=== PATIENT | male | born 1940 | race Two or more races ===

== ENCOUNTER → 2024-09-22 | Outpatient (CLI) | payer MEDICARE, BC, SELFPAY ==
--- NOTE | 2024-09-22 08:00 | EKG_ITS ---
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
--- NOTE | 2024-09-22 08:00 | XR_ITS ---
Examination: PA lateral chest 2 views TECHNIQUE: Upright PA lateral chest 2 views Exam date and time: September 22, 2024 0914 hours Comparison May 18, 2024 INDICATIONS: Preop FINDINGS: Mild chronic heart failure pattern Prominent vascular congestion Cardiac contour obscured by bilateral large pleural effusions Cardiac leads satisfactory position Right internal jugular dialysis catheter tip right atrium IMPRESSION: Chronic heart failure pattern with large bilateral pleural effusions
[2024-09-22 08:36] VITALS: BMI 22.5
[2024-09-22 10:25] LABS: INR 1.3 (0.9-1.3); Partial Thromboplastin Time 25.9 Seconds (22.0-36.0); Prothrombin Time 13.5 Seconds (9.0-12.2)
[2024-09-22 10:26] LABS: Basophils % (Auto) 0 % (0-2.5); Eosinophils % (Auto) 0 % (0-10); Hematocrit 40.3 % (41.0-53.0); Hemoglobin 13.3 g/dL (13.5-16.0); Immature Granulocytes % (Auto) 0 % (0-0); Immature Granulocytes Auto 0.03 Thou/mm3 (0.00-0.00); Lymphocytes # (Auto) 0.9 Thou/mm3 (1.0-4.8); Lymphocytes % (Auto) 13 % (10-50); Mean Corpuscular Hemoglobin 30.5 pg (25.0-35.0); Mean Corpuscular Volume 92 fL (80-100); Monocytes # (Auto) 0.6 Thou/mm3 (0.0-0.8); Monocytes % (Auto) 9 % (0-12); Neutrophils # (Auto) 5.3 Thou/mm3 (1.8-7.7); Neutrophils % (Auto) 77 % (37-80); Nucleated Red Blood Cell % 0 /100 WBC (0); Platelet Count 144 Thou/mm3 (140-440); Red Blood Count 4.36 Miln/mm3 (4.50-5.90); White Blood Count 6.9 Thou/mm3 (3.8-10.6)
[2024-09-22 11:14] LABS: Alanine Aminotransferase 48 U/L (10-49); Albumin, Serum 4.2 gm/dL (3.4-4.8); Albumin/Globulin Ratio 1.8 (1.2-2.2); Alkaline Phosphatase 94 U/L (46-116); Anion Gap 11 (7-16); Aspartate Amino Transferase 41 U/L (0-34); BUN/Creatinine Ratio 16 Ratio (12-20); Bilirubin,Total 0.8 mg/dL (0.3-1.2); Blood Urea Nitrogen 82 mg/dL (9-23); Calcium 9.3 mg/dL (8.3-10.6); Calcium (Corrected) 9.3 mg/dL (8.5-10.1); Carbon Dioxide 25.1 mMol/L (20.0-31.0); Chloride 91 mMol/L (98-107); Creatinine (Component) 5.1 mg/dL (0.6-1.3); Estimated Creatinine Clearance 10.3 mL/min (>60); Globulin 2.4 gm/dL (2.3-3.5); Glucose 225 mg/dL (74-106); Osmolality,Calculated 286 (275-295); Sodium 127 mMol/L (136-145); Total Protein 6.6 gm/dL (5.7-8.2); eGFR 11 See Note
[2024-09-22 11:20] LABS: Potassium 6.8 mMol/L (3.4-5.1)
--- NOTE | 2024-09-22 15:00 | PD.ANESPROG ---
Documentation for date of: 09/22/24 BRIEF PRE-OP ANESTHESIA NOTE: This patient was scheduled for elective UE AVF placement on 09/24/[address] Booker, however it is now cancelled due to need for further cardiac work-up. Pre-op liaison informed me about this patient about the most recent cardiology note from Aug 2024 stating patient having chest pain and dyspnea and cardiology planning to do work-up. I spoke with Dr. Styles, who reported his EF 20% (it was 60% in December 2023), probably has multi-vessel CAD, and he is thinking about doing cardiac cath. He also has h/o pacemaker placement for complete heart block. I spoke with Dr. Rasheed about his hx and cardiology concern and he is okay to cancel the surgery for now and allow cardiology to conduct the evaluation. So I spoke with Dr. Styles again about this and he is planning to do cardiac cath and thus his surgery is cancelled for 09/24/24. I called Dr. Booker again and informed him about cardiology plan and cancellation for 09/24/24 and he agreed. I informed the pre-op liaison about the cancellation and instructed her to inform the patient about cancellation and to let him know the reason for cancellation is due to need for further cardiac work-up and he can contact Dr. Styles's office for further questions/concerns. SN: Given his h/o complete heart block and pacemaker placement, I confirmed with Dr. Styles that putting magnet on his device will be okay during surgery to place him in asynchronous mode. Madhav Carbajal MD
== END | disposition home or self-care (01) ==
LOC: SLAB 09-24 07:09
PROVIDERS: PCP Family Medicine; Referring Provider Student in an Organized Health Care Education/Training Program; Visit Provider Student in an Organized Health Care Education/Training Program
DX: Z01.818 Encounter for other preprocedural examination (principal); Z01.812 Encounter for preprocedural laboratory examination; N18.6 End stage renal disease
CPT/HCPCS: 36415; 71046; 80053; 85025; 85610; 85730; 93005

== ENCOUNTER 2024-10-07 06:44 | Day surgery (SDC) | payer MEDICARE, BC, SELFPAY ==
--- NOTE | 2024-10-06 07:00 | EKG_ITS ---
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
[2024-10-06 09:38] LABS: Basophils % (Auto) 0 % (0-2.5); Eosinophils % (Auto) 0 % (0-10); Hemoglobin 13.2 g/dL (13.5-16.0); Immature Granulocytes % (Auto) 0 % (0-0); Immature Granulocytes Auto 0.01 Thou/mm3 (0.00-0.00); Lymphocytes # (Auto) 0.9 Thou/mm3 (1.0-4.8); Lymphocytes % (Auto) 15 % (10-50); Mean Corpuscular Hemoglobin 30.4 pg (25.0-35.0); Mean Corpuscular Volume 92 fL (80-100); Monocytes # (Auto) 0.6 Thou/mm3 (0.0-0.8); Monocytes % (Auto) 10 % (0-12); Neutrophils # (Auto) 4.4 Thou/mm3 (1.8-7.7); Neutrophils % (Auto) 75 % (37-80); Nucleated Red Blood Cell % 0 /100 WBC (0); Platelet Count 134 Thou/mm3 (140-440); RDW Standard Deviation 53.1 fL (35.1-43.9); Red Blood Count 4.34 Miln/mm3 (4.50-5.90); White Blood Count 5.8 Thou/mm3 (3.8-10.6)
[2024-10-06 09:50] LABS: Anion Gap 15 (7-16); BUN/Creatinine Ratio 18 Ratio (12-20); Blood Urea Nitrogen 96 mg/dL (9-23); Carbon Dioxide 21.9 mMol/L (20.0-31.0); Chloride 90 mMol/L (98-107); Creatinine (Component) 5.2 mg/dL (0.6-1.3); Glucose 203 mg/dL (74-106); Osmolality,Calculated 290 (275-295); Potassium 5.5 mMol/L (3.4-5.1); Sodium 127 mMol/L (136-145); eGFR 10 See Note
[2024-10-06 09:53] LABS: INR 1.2 (0.9-1.3); Partial Thromboplastin Time 26.5 Seconds (22.0-36.0); Prothrombin Time 13.4 Seconds (9.0-12.2)
[2024-10-07] VITALS (19 sets, daily range): BP systolic 110–129; BP diastolic 68–81; PULSE 87–97; RESP 12–22; TEMP 36.4–36.8; O2SAT 92–96; BMI 21.8
[2024-10-07] MEDS: SODIUM CHLORIDE 0.45 % 100 ML IV (07:45)
--- NOTE | 2024-10-07 09:42 | ESOP_ITS ---
RE: VIVEK CHRISTIANSON : 1940 DATE OF OPERATION: 10/07/2024 PROCEDURE PERFORMED: 1. Diagnostic right and left heart cardiac catheterization, selective coronary angiogram, left ventricular angiogram, CPT 02360. 2. Conscious sedation for 30-minute duration. 3. Ultrasound-guided access of right femoral artery and right femoral vein. 4. Iliofemoral angiogram. DIAGNOSES: Coronary artery disease, ischemic cardiomyopathy, congestive heart failure, and abnormal nuclear scan. 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 Nuclear scan showed multiple perfusion defects. Hence, coronary angiogram was recommended to assess the patient has ischemic cardiomyopathy and assessment of LV dysfunction prior to giving cardiac clearance for vascular procedures such as AV fistula, which was planned to have. DESCRIPTION OF PROCEDURE: The patient was brought to cardiac catheterization laboratory where he was given conscious sedation with 1 mg Versed and 50 mcg fentanyl for sedation. Right femoral artery was cannulated with micropuncture technique and Seldinger technique and a 5-Ecuadorean sheath was introduced. Right femoral vein was cannulated by Seldinger technique, 7-Ecuadorean sheath was introduced. Ultrasound guidance was used subsequently. Selective right and left coronary angiogram performed by 5-Ecuadorean Judkin's catheter and left heart catheterization was performed by 5-Ecuadorean pigtail catheter, left ventricular angiogram was performed, iliofemoral angiogram was performed. Right heart catheterization was performed with [place]-Cherri catheter. Right heart pressures are measured. Cardiac catheterization showed following findings. HEMODYNAMICS: Right atrial pressure is found to be elevated 11 mmHg. Right ventricular pressure is 48/9 and end-diastolic pressure is 12 mmHg. Pulmonary artery pressure is 49/23 mmHg, mean pressure 35 mmHg. Pulmonary artery wedge pressure is 22 mmHg, mean pressure 20 mmHg. There is no gradient across the aortic valve. Left ventricular angiogram showed evidence of severe global hypokinesis, ejection fraction 15% to 20%. Coronary angiogram showed following findings. Right coronary artery showed a heavy calcification of the entire vessel with severe 80% stenosis of the mid right coronary artery followed by 90% stenosis of the distal right coronary artery. Distal vessels are small. Left coronary artery system: Left main coronary artery is small. Appears to show calcification. No significant obstructive lesion. Left anterior descending artery showed heavy calcification, moderate diffuse disease about 40% to 50% entire mid and distal LAD. Left circumflex artery is represented with one very large obtuse marginal branch, but proximal one-third of the vessel is heavily calcified, showed 95% to 99% segmental stenosis, complex lesion. Iliofemoral angiogram showed heavily calcified femoral arteries with no significant obstructive lesions. SUMMARY OF FINDINGS AND SUGGESTIONS: 1. Ischemic cardiomyopathy with severe triple vessel coronary artery disease with severe LV dysfunction, ejection fraction 15%. 2. Severe stenosis circumflex artery, 95% stenosis, severe stenosis of right coronary artery, moderate stenosis of left anterior descending artery. 3. Elevated pulmonary artery wedge pressures and PA pressures, group 2, pulmonary hypertension secondary to cardiomyopathy and volume overload. RECOMMENDATIONS: The patient will continue medical management, very high risk for PCI, high syntax score, may be considered with Impella and left ventricular assist device and complex intervention, but overall 84-year-old elderly male with frailty and renal disease, high mortality for any complex PCI. Hence, recommend dialysis with tunnel catheter, but AV fistula definitely is high risk at this point without any revascularization procedures. DT: 08:35:57 TT: 09:30:00 Ref: [id number] - TID: [id number]
--- NOTE | 2024-10-07 10:12 | PC.NURSE ---
0830 patient is awake, alert, breathing unlabored, s/p LHC and RHC under IV sedation. Report received from Deon OSBORN. Patient has a dialysis catheter to right upper chest, dressing clean, dry and intact. Arterial and venous sheath present to right groin, no bleeding noted. Ok to remove both femoral sheaths at this time and discharge patient home 4hrs after hemostasis obtained. 0843 Arterial sheath removed from right groin, manual pressure applied 0855 venous sheath removed, manual pressure being applied 0905 manual pressure removed from both arterial and venous sheath puncture sites, no bleeding or hematoma noted, site covered with 4x4 gauze and tegaderm, sand bag applied.
--- NOTE | 2024-10-07 11:22 | PC.NURSE ---
1100 patient done with breakfast food tray, no nausea or vomiting noted. Sand bag removed at this time, no bleeding or hematoma noted to right groin.
--- NOTE | 2024-10-07 12:00 | PC.NURSE ---
[address] Styles, patient to be on bedrest for 4hrs after hemostasis obtained and discharge home 5hrs post hemostasis.
[2024-10-07] MEDS: HYDROcodone/APAP 5/325 TABLET 1 TAB PO (12:25)
--- NOTE | 2024-10-07 13:03 | PC.NURSE ---
Patient care taken over at this time. Patient in stable conditions, surgical site to right femoral asymptomatic. Will continue to monitor
--- NOTE | 2024-10-07 13:47 | PC.NURSE ---
1240 patient is awake, alert, alert, breathing unlabored dressing to right groin dry with no bleeding or hematoma, report given to Deon OSBORN 1330 patient is awake, alert, breathing unlabored dressing to right groin dry with no bleeding or hematoma, assume care of patient
--- NOTE | 2024-10-07 14:48 | PC.NURSE ---
1435 patient is awake, alert, breathing unlabored dressing to right groin dry with no bleeding or hematoma, discharge instructions given to patient and son, patient discharged home in wheelchair with all belongings including walker. Pt took home a CD as requested by .
== END 2024-10-07 14:35 | disposition home or self-care (01) ==
PROVIDERS: PCP Family Medicine; Referring Provider Internal Medicine Cardiovascular Disease; Visit Provider Internal Medicine Cardiovascular Disease
PROC: (CPT 93460; principal; 2024-10-07 07:30)
DX: I25.118 Atherosclerotic heart disease of native coronary artery with other forms of angina pectoris (principal); I13.2 Hypertensive heart and chronic kidney disease with heart failure and with stage 5 chronic kidney disease, or end stage renal disease; I25.5 Ischemic cardiomyopathy; I50.9 Heart failure, unspecified; N18.6 End stage renal disease; Z95.0 Presence of cardiac pacemaker; Z99.2 Dependence on renal dialysis; I27.20 Pulmonary hypertension, unspecified
CPT/HCPCS: 93460; G0278; 36415; 80048; 85025; 85610; 85730; 93005; 99152; 99153; A4649; C1769; C1894; J0171; J0461; J1643; J1940; J2250; J2310; J2371; J3010; J3490; J7030; Q9967; A9270; J1644; J2305

== ENCOUNTER 2024-11-23 13:55 | Emergency (ER) | payer MEDICARE, BC, SELFPAY ==
[2024-11-23] VITALS (9 sets, daily range): BP systolic 78–104; BP diastolic 45–63; PULSE 83–93; RESP 16–80; TEMP 36.3–36.7; O2SAT 90–99; BMI 19.6
--- NOTE | 2024-11-23 14:28 | PC.NURSE ---
PT BIB [facility]ERIAL CC NAUSEA x4 DAYS NO VOMITING, LOSS OF APPETITE, PT HAS HX OF ESRD DIALYSIS T, TH , SAT. NO IV STARTED IN ROUTE, PT GIVEN 4MG ZOFRAN PO.
--- NOTE | 2024-11-23 15:29 | PD.EDNV ---
Nausea/Vomit./Diarrhea-RME/HPI General Chief complaint: Nausea/Vomiting/Diarrhea Stated complaint: NAUSEA Time Seen by Provider: 11/23/24 14:50 Arrival date/time: 11/23/24 13:55 RME / HPI RME / HPI Narrative: 84 year old male with history of ESRD on HD T//Sat, hypertension, diabetes, hyperlipidemia, BPH presents to the ED BIBA for evaluation of nausea, decreased appetite, and abdominal pain beginning 2 days ago. States abdominal pain is intermittent since onset and located diffusely, rating as mild. Accompanied by having multiple bowel movements yesterday and a mild cough. Denies fevers, chills, sweats, chest pain, shortness of breath, or vomiting. Patient was last dialyzed Saturday and denies missing any dialysis treatments. Related Data Home Medications ?Medication ?Instructions ?Recorded ?Confirmed alprazolam 0.25 mg tablet 0.25 mg PO HS PRN Anxiety 09/22/24 11/23/24 ergocalciferol (vitamin D2) 1,250 50,000 unit PO QWEEK 09/22/24 11/23/24 mcg (50,000 unit) capsule insulin NPH isoph U-100 human 100 20 unit subcut BID 09/22/24 11/23/24 unit/mL subcutaneous suspension (Novolin N NPH U-100 Insulin isophane) megestrol 400 mg/10 mL (40 mg/mL) 10 mg PO QDAY 09/22/24 11/23/24 oral suspension vitamin B complex-vitamin C-folic 1 tab PO QDAY 09/22/24 11/23/24 acid 0.8 mg tablet (Marlen-Courtney) tamsulosin 0.4 mg capsule 0.4 mg PO DAILY 10/07/24 11/23/24 doxycycline hyclate 100 mg tablet 100 mg PO BID 11/23/24 11/23/24 midodrine 10 mg tablet 10 mg PO TID 11/23/24 11/23/24 sacubitril 24 mg-valsartan 26 mg See Rx Instructions PO BID 11/23/24 11/23/24 tablet (Entresto) Previous Rx's ?Medication ?Instructions ?Recorded amoxicillin 875 mg-potassium 1 tab PO Q12H #10 tabs 11/23/24 clavulanate 125 mg tablet doxycycline monohydrate 100 mg 100 mg PO BID #10 caps 11/23/24 capsule Allergies Allergy/AdvReac Type Severity Reaction Status Date / Time No Known Allergies Allergy Verified 11/23/24 14:27 Review of Systems Review of Systems Narrative Review of Systems: Gen: No fever, no chills, no weight loss EYES: No discharge, no visual changes, no pain HEENT: No ear pain, no congestion, no sore throat PULM: no shortness of breath, no cough, no congestion CV: No chest pain, no palpitations, no chest tightness GI: +nausea, no vomiting, +diarrhea, +pain, no constipation, +decreased appetite : No frequency, no urgency,? no dysuria Musc/skel: No joint pain, no back pain Skin: No rash, no ecchymosis, no lesions Neuro: No weakness, no headache Past Medical History Past Medical History CARDIAC: Positive Cardiac Disorders, Angina, Hypercholesterolemia, Congestive Heart Failure and Hypotension GASTROINTESTINAL: Positive Gastrointestinal Disorders (CONSTIPATION) and Gastrointestinal Bleed (ULCER) GENITOURINARY: Positive Genitourinary Disorders (VOIDS VERY SMALL AMOUNTS), Renal Disease, Dialysis (-) and Benign Prostatic Hyperplasia MUSCULOSKELETAL: Positive Musculoskeletal Disorders ENT: Positive Cataracts (BILATERAL), 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 MMM. EOMI, clear conjunctiva, oropharynx clear. NECK: Supple without lymphadenopathy. No stiffness or restricted ROM. CHEST: Right upper chest dialysis tunnel catheter that is c/d/i. Pacemaker in the left upper chest. HEART: Normal rate and regular rhythm, normal S1/S1, no m/r/g LUNGS: CTAB, moving air well. No crackles or wheezes are heard. ABDOMEN: Soft, nontender, nondistended with good bowel sounds heard. BACK: No midline C/T/L spine pain or deformity, No CVAT, no obvious deformity. EXTREMITIES: Without cyanosis, clubbing or edema. MUSCULOSKELETAL: FROM of all major joints, no chest tenderness NEUROLOGICAL: Grossly nonfocal. Alert and oriented, moving all 4 extremities. CN not formally tested but appear grossly intact. Skin: Warm and dry without any rash. Course Quality Measures none Orders Category Date Time Status Bedside COVID-19 Antigen Test NOW Care 11/23/24 14:54 Completed Bedside Influenza A&B Antigen Test NOW Care 11/23/24 14:[address] abdomen pelvis wo con Stat Exams 11/23/24 16:05 Completed XR chest 1V Stat Exams 11/23/24 16:05 Completed Blood Culture (Lab) Stat Lab 11/23/24 17:32 Received CBC Stat Lab 11/23/24 14:30 Completed CMP [Comprehensive Metabolic Panel] Stat Lab 11/23/24 14:30 Completed cefTRIAXone/D5w 1gm IV premix [Rocephin/D5w 1gm IV Med 11/23/24 16:51 Discontinued premix] 50 ml IV X1 Reevaluation(s) Reevaluation #1: Patient remains clinically stable throughout the emergency department visit. We reviewed all the results, analysis, and treatment plans. Patient is amenable to discharge. Strict return precautions were outlined. Patient was discharged in stable condition. Time: 18:00 Vital Signs Vital signs: Vital Signs Pulse Oximetry (%) 95 11/23/24 14:14 Oxygen Flow Rate 2 11/23/24 14:14 Pulse ox is 91% on room air which is hypoxic. Nausea/Vomiting/Diarrhea MDM Narrative MDM Narrative:: Mr. Bates is a clinically well-appearing gentleman who essentially just complains of a loss of appetite for the last several days. He endorses this as his primary concern today. Very well-appearing when he does this. In directing the review of systems there does appear to be a mild cough and may be intermittent or sporadic abdominal pain. Given the current time of the year I wonder if this is just simply a viral illness. However given that he is 84, frail, has a history of end-stage renal disease, expanded workup was done including laboratory testing and viral swabs. Limited viral results for COVID and influenza were negative therefore expanded workup including abdominal CT was done. There are no acute findings. He does have large pleural effusions bilaterally, however in review of his chest x-ray done in September 2024 this appears to be chronic. I reviewed the CT scan myself of the lower lobes of the lungs and there does appear to be some air bronchograms of the left lower lobe possibly suggestive of a early pneumonia that is contributing to his loss of appetite. He has no respiratory complaints or respiratory distress. He is appropriate for outpatient treatment for his pneumonia, he was given first dose of IV antibiotics here in the emergency department and will be prescribed dual coverage with Augmentin and doxycycline at home. This would not interfere with his dialysis and he can continue scheduled. INedra, am scribing for and in the presence of Dr. Ng. Patient data External records reviewed:: [facility] previous records (I reviewed H&P on 09/22/2024) and EMS form Clinical information provided by:: patient Social determinants that could affect healthcare access:: none Patient has the following chronic illnesses:: ESRD on HD T//Sat, hypertension, diabetes, hyperlipidemia, BPH How is presenting disease/condition affected by chronic disease/condition?: exacerbated by Evaluation data The following diagnostics were reviewed and interpreted by me:: lab results and radiology exam(s) (CXR my interpretation: Bilateral pleural effusion and significant pneumonia ) Lab and/or radiology exams considered but not ordered:: None Interpretation Summary: Ordering Physician: Aaron Ng MD Date of Service: 11/23/24 Procedure(s): CT abdomen pelvis wo con Accession Number(s): [id number] cc: Aaron Ng MD; Cale Phillip MD~ Examination: CT abdomen and pelvis without contrast. Coronal 3-D reconstructions. Sagittal 2-D reconstructions. Date and time of exam:November 23, 2024 1627 hours Comparison April 16, 2024 INDICATIONS: Onset generalized abdominal pain today, history cirrhosis CTDI: vol (mGy): 4.83 DLP: (mGycm): 267 Technique: Axial images of the abdomen have been obtained, 3 mm slice thickness Intravenous contrast material has not been administered. Low dose protocols were performed. One or more of the following dose reduction techniques were used; automated exposure control, adjustment of the mA and/or KV according to patient size, use of iterative reconstruction technique. Findings: Large bilateral pleural effusions Moderate enlargement cardiac contour prominent vascular congestion and perihilar edema Cirrhosis, liver irregular in contour No gallstones Spleen not enlarged Heavy vascular calcification No pancreatic mass Renal arterial calcifications, no hydronephrosis Mild diffuse wall thickening involving the colon and small bowel loops No pericecal inflammatory change No diverticulitis Significant prostatomegaly, mediolateral dimension 5.4 cm Fluid containing right inguinal hernia Severe osteopenia with mild to moderate diffuse lumbar disc narrowing IMPRESSION: Heart failure with pulmonary edema and large bilateral pleural effusions Cirrhosis Heavy vascular calcifications Hepatic colopathy, hepatic enteropathy No bowel obstruction Significant prostatomegaly Fluid containing right inguinal hernia Dictated By:Cale Phillip MD Signed By:<Electronically signed by Cale Phillip MD in OV>11/23/24 1651 Ordering Physician: Aaron Ng MD Date of Service: 11/23/24 Procedure(s): XR chest 1V Accession Number(s): [id number] cc: Aaron Ng MD; Cale Phillip MD~ Examination: AP chest single view Technique one AP portable semiupright chest single view Exam date and time: November 23, 2024 1615 hours Comparison September 22, 2024 INDICATIONS: Coughing today. FINDINGS: Mild CHF Mild enlargement cardiac contour with prominent vascular congestion and early perihilar edema Significant bibasilar pneumonia Large bilateral pleural effusions Cardiac leads satisfactory position Right internal jugular dialysis catheter tip right atrium IMPRESSION: Mild heart failure Significant bibasilar pneumonia Dictated By:Cale Phillip MD Signed By:<Electronically signed by Cale Phillip MD in [place]>11/23/24 1621 Medications / Prescriptions Medications / Prescriptions considered but not ordered:: None Medication administrations:: Medication Administration History Discontinued Medications Ceftriaxone Sodium/Dextrose (Rocephin/D5w 1gm Iv Premix) 50 mls @ 100 mls/hr IV X1 ONE Stop: 11/23/24 17:20 Last Infusion: 11/23/24 18:27 Dose: Infused Documented By: KDJett Admin: 11/23/24 18:03 Dose: 100 mls/hr Documented By: BD See above Consultations Consultation(s) initiated? (list below): No Diagnosis Nausea Differential Diagnosis: food poisoning, gastroenteritis, clostridium difficile infection, drug-induced nausea and vomiting and dehydration Most likely diagnosis given after review of the tests above:: Pneumonia Pleural effusion ESRD Admission Indicated Admission indicated?: not indicated Admission Request Was there a request for admission?: No Disposition Plan Disposition Plan: Discharge Discharge Attestation Discharge Attestation: The patient and all family members were given an opportunity to ask questions and understood the discharge instructions. Discharge instructions specifically effects, indications for sooner follow up or return to the emergency department, and the expected course of current diagnosis. Patient condition: Stable Discharge Plan Plan Patient Disposition: HOME (Self Care) Prescriptions/Referrals Prescriptions/Med Rec: New amoxicillin-pot clavulanate 875-125 mg tablet 1 tab PO Q12H Qty: 10 0RF doxycycline monohydrate 100 mg capsule 100 mg PO BID Qty: 10 0RF No Action midodrine 10 mg tablet 10 mg PO TID Rx Instructions: do not give last dose of day after 6PM or within 4 hrs of bedtime doxycycline hyclate 100 mg tablet 100 mg PO BID sacubitril-valsartan [Entresto] 24-26 mg tablet See Rx Instructions PO BID Rx Instructions: 1/2 TAB BID megestrol 400 mg/10 mL (40 mg/mL) suspension 10 mg PO QDAY Patient Comments: TAKE 10 ML BY MOUTH DAILY alprazolam 0.25 mg tablet 0.25 mg PO HS PRN (Reason: Anxiety) Patient Comments: 1 TABLET BY MOUTH AT BEDTIME NEEDED NEEDED Marlen-Courtney 0.8 mg tablet 1 tab PO QDAY Patient Comments: TAKE 1 TABLET BY MOUTH EVERY DAY ergocalciferol (vitamin D2) 1,250 mcg (50,000 unit) capsule 50,000 unit PO QWEEK Patient Comments: TAKE 1 CAPSULE BY MOUTH WEEKLY Rx Instructions: ON FRIDAYS Novolin N NPH U-100 Insulin 100 unit/mL Suspension 20 unit SUBCUT BID Rx Instructions: ADJUSTS DEPENDING BG tamsulosin 0.4 mg Capsule 0.4 mg PO DAILY Problem List Clinical Impression: Pneumonia, Pleural effusion, ESRD (end stage renal disease) Patient/Caregiver Discharge Instructions Education Materials: ED Pleural Effusion, ED Pneumonia (Adult) Additional Instructions: You can continue with your normal dialysis schedule. Follow-up with your primary care doctor in 2 to 3 days for recheck. You have been given your first dose of antibiotics here in the emergency department, you can fill your prescription tomorrow and start taking by the afternoon. Feel free return to the emergency department sooner if symptoms worsen or if you notice any new, concerning issues. Print Language: Setswana Stand Alone Forms: Anne Award Info., Patient Portal Info Letter
--- NOTE | 2024-11-23 16:05 | XR_ITS ---
Examination: AP chest single view Technique one AP portable semiupright chest single view Exam date and time: November 23, 2024 1615 hours Comparison September 22, 2024 INDICATIONS: Coughing today. FINDINGS: Mild CHF Mild enlargement cardiac contour with prominent vascular congestion and early perihilar edema Significant bibasilar pneumonia Large bilateral pleural effusions Cardiac leads satisfactory position Right internal jugular dialysis catheter tip right atrium IMPRESSION: Mild heart failure Significant bibasilar pneumonia
--- NOTE | 2024-11-23 16:05 | XR_ITS ---
Examination: CT abdomen and pelvis without contrast. Coronal 3-D reconstructions. Sagittal 2-D reconstructions. Date and time of exam:November 23, 2024 1627 hours Comparison April 16, 2024 INDICATIONS: Onset generalized abdominal pain today, history cirrhosis CTDI: vol (mGy): 4.83 DLP: (mGycm): 267 Technique: Axial images of the abdomen have been obtained, 3 mm slice thickness Intravenous contrast material has not been administered. Low dose protocols were performed. One or more of the following dose reduction techniques were used; automated exposure control, adjustment of the mA and/or KV according to patient size, use of iterative reconstruction technique. Findings: Large bilateral pleural effusions Moderate enlargement cardiac contour prominent vascular congestion and perihilar edema Cirrhosis, liver irregular in contour No gallstones Spleen not enlarged Heavy vascular calcification No pancreatic mass Renal arterial calcifications, no hydronephrosis Mild diffuse wall thickening involving the colon and small bowel loops No pericecal inflammatory change No diverticulitis Significant prostatomegaly, mediolateral dimension 5.4 cm Fluid containing right inguinal hernia Severe osteopenia with mild to moderate diffuse lumbar disc narrowing IMPRESSION: Heart failure with pulmonary edema and large bilateral pleural effusions Cirrhosis Heavy vascular calcifications Hepatic colopathy, hepatic enteropathy No bowel obstruction Significant prostatomegaly Fluid containing right inguinal hernia
[2024-11-23 16:22] LABS: Basophils % (Auto) 0 % (0-2.5); Eosinophils # (Auto) 0.1 Thou/mm3 (0.0-0.5); Eosinophils % (Auto) 1 % (0-10); Hematocrit 36.8 % (41.0-53.0); Hemoglobin 12.2 g/dL (13.5-16.0); Immature Granulocytes % (Auto) 0 % (0-0); Immature Granulocytes Auto 0.02 Thou/mm3 (0.00-0.00); Lymphocytes # (Auto) 0.6 Thou/mm3 (1.0-4.8); Lymphocytes % (Auto) 6 % (10-50); Mean Corpuscular HGB Conc 33.2 g/dl (31.0-37.0); Mean Corpuscular Hemoglobin 31.8 pg (25.0-35.0); Mean Corpuscular Volume 96 fL (80-100); Monocytes # (Auto) 0.8 Thou/mm3 (0.0-0.8); Monocytes % (Auto) 8 % (0-12); Neutrophils # (Auto) 8.7 Thou/mm3 (1.8-7.7); Neutrophils % (Auto) 86 % (37-80); Nucleated Red Blood Cell % 0 /100 WBC (0); Platelet Count 169 Thou/mm3 (140-440); RDW Standard Deviation 52.3 fL (35.1-43.9); Red Blood Count 3.84 Miln/mm3 (4.50-5.90); White Blood Count 10.2 Thou/mm3 (3.8-10.6)
[2024-11-23 16:35] LABS: Alanine Aminotransferase 14 U/L (10-49); Albumin, Serum 3.4 gm/dL (3.4-4.8); Albumin/Globulin Ratio 1.3 (1.2-2.2); Alkaline Phosphatase 111 U/L (46-116); Anion Gap 11 (7-16); Aspartate Amino Transferase 14 U/L (0-34); BUN/Creatinine Ratio 13 Ratio (12-20); Bilirubin,Total 0.5 mg/dL (0.3-1.2); Blood Urea Nitrogen 60 mg/dL (9-23); Calcium 8.9 mg/dL (8.3-10.6); Calcium (Corrected) 9.4 mg/dL (8.5-10.1); Carbon Dioxide 27.8 mMol/L (20.0-31.0); Chloride 93 mMol/L (98-107); Creatinine (Component) 4.6 mg/dL (0.6-1.3); Estimated Creatinine Clearance 10.5 mL/min (>60); Globulin 2.6 gm/dL (2.3-3.5); Glucose 229 mg/dL (74-106); Osmolality,Calculated 288 (275-295); Potassium 5.7 mMol/L (3.4-5.1); Sodium 132 mMol/L (136-145); eGFR 12 See Note
[2024-11-23] MEDS: cefTRIAXone/D5w 1gm IV premix 50 ML IV (18:03)
== END 2024-11-23 19:46 | disposition home or self-care (01) ==
PROVIDERS: Emergency Provider Emergency Medicine
DX: J18.9 Pneumonia, unspecified organism (principal); E11.22 Type 2 diabetes mellitus with diabetic chronic kidney disease; I12.0 Hypertensive chronic kidney disease with stage 5 chronic kidney disease or end stage renal disease; N18.6 End stage renal disease; Z99.2 Dependence on renal dialysis; N40.0 Benign prostatic hyperplasia without lower urinary tract symptoms; E78.5 Hyperlipidemia, unspecified
CPT/HCPCS: 36415; 71045; 74176; 80053; 85025; 87040; 87400; 87811; 96365; 99284; J0696

== ENCOUNTER → 2024-11-25 | Outpatient (CLI) | payer MEDICARE, BC, SELFPAY | END | disposition home or self-care (01) | PROVIDERS: PCP Family Medicine; Referring Provider Family Medicine; Visit Provider Surgery | DX: E11.621 Type 2 diabetes mellitus with foot ulcer (principal); S90.425A Blister (nonthermal), left lesser toe(s), initial encounter; S90.424A Blister (nonthermal), right lesser toe(s), initial encounter; S91.302A Unspecified open wound, left foot, initial encounter; S91.301A Unspecified open wound, right foot, initial encounter; X58.XXXA Exposure to other specified factors, initial encounter; L97.421 Non-pressure chronic ulcer of left heel and midfoot limited to breakdown of skin; L97.411 Non-pressure chronic ulcer of right heel and midfoot limited to breakdown of skin; L97.521 Non-pressure chronic ulcer of other part of left foot limited to breakdown of skin; L97.511 Non-pressure chronic ulcer of other part of right foot limited to breakdown of skin; N18.6 End stage renal disease; Z79.4 Long term (current) use of insulin; Z95.0 Presence of cardiac pacemaker; I50.9 Heart failure, unspecified; H54.62 Unqualified visual loss, left eye, normal vision right eye | CPT/HCPCS: 11043; 11046; 97597; 99213; A9270; G0463 ==

== ENCOUNTER 2024-11-26 12:23 | Inpatient (IN) | payer MEDICARE, BC, SELFPAY ==
[2024-11-26] VITALS (17 sets, daily range): BP systolic 88–114; BP diastolic 48–86; PULSE 80–103; RESP 15–22; TEMP 36–36.6; O2SAT 93–98; BMI 20.2
--- NOTE | 2024-11-26 13:19 | XR_ITS ---
Examination: Foot, left, 3 views Technique: AP, oblique, lateral views foot, 3 views Date and time of exam: November 26, 2024 1409 hours INDICATIONS: Foot infection redness swelling and pain 3 months. FINDINGS: Prominent osteopenia No fracture No fabrizio cortical bone destruction Soft tissue vascular calcification Soft tissue swelling dorsum of the foot IMPRESSION: No fabrizio cortical bone destruction Consider MRI foot without contrast follow-up
--- NOTE | 2024-11-26 13:19 | XR_ITS ---
Examination: PA chest single view TECHNIQUE: Upright PA chest single view Exam date and time: November 26, 2024 1413 hours INDICATIONS: Shortness of breath this week FINDINGS: Mild chronic heart failure pattern Moderate enlargement cardiac contour Large bilateral pleural effusions Cardiac leads satisfactory position Right internal jugular dialysis catheter tip right atrium IMPRESSION: Mild chronic heart failure pattern
--- NOTE | 2024-11-26 13:19 | XR_ITS ---
Examination: Foot, right, 3 views Technique: AP, oblique, lateral views foot, 3 views Date and time of exam: November 26, 2024 1409 hours INDICATIONS: Redness swelling and pain involving the foot beginning 3 months ago. FINDINGS: Prominent osteopenia Soft tissue vascular calcification No fabrizio cortical bone destruction Soft tissue swelling dorsum of foot IMPRESSION: No fabrizio cortical bone destruction Consider MRI foot without contrast follow-up
--- NOTE | 2024-11-26 13:21 | EDNOTE_ITS ---
<Statement entered by Ambar San MD - 12/01/24 07:24> As co-signing physician, I was present and available for consult prn. I concur with the plan and care as documented by the midlevel provider. ED General RME/HPI General Chief complaint: General Adult/Misc Complain Stated complaint: Low heart rate per Dr. Waterman Time Seen by Provider: 11/26/24 12:39 Arrival date/time: 11/26/24 12:23 RME / HPI RME / HPI narrative: 84-year-old male patient with significant history of diabetes mellitus, chronic bilateral foot infection, ESRD, was sent to us by Dr. Waterman for hypotension. Patient went to dialysis today and was advised to go to the emergency room because the blood pressure was low, number unknown. Patient was recently seen here last Saturday and was diagnosed with pleural effusion and pneumonia. Currently taking doxycycline and Augmentin. Patient is also followed by health care marketing specialist, for chronic foot infection for the last 3 months. Was seen yesterday. Patient denies any fever but complained of continuous cough. And not feeling well. No medication was given prior to arrival. Related Data Home Medications ?Medication ?Instructions ?Recorded ?Confirmed alprazolam 0.25 mg tablet 0.25 mg PO HS PRN Anxiety 11/23/24 ergocalciferol (vitamin D2) 1,250 50,000 unit PO QWEEK 09/22/24 11/23/24 mcg (50,000 unit) capsule insulin NPH isoph U-100 human 100 20 unit subcut BID 1 11/23/23 11/23/24 unit/mL subcutaneous suspension (Novolin N NPH U-100 Insulin isophane) megestrol 400 mg/10 mL (40 mg/mL) 10 mg PO QDAY 11/23/24 oral suspension vitamin B complex-vitamin C-folic 1 tab PO QDAY 11/23/24 acid 0.8 mg tablet (Marlen-Courtney) tamsulosin 0.4 mg capsule 0.4 mg PO DAILY 10/07/2401/12 doxycycline hyclate 100 mg tablet 100 mg PO BID 11/23/24 midodrine 10 mg tablet 10 mg PO TID 11/23/24 sacubitril 24 mg-valsartan 26 mg See Rx Instructions P O BID 11/23/24 11/23/24 tablet (Entresto) Previous Rx's ?Medication ?Instructions ?Recorded amoxicillin 875 mg-potassium 1 tab PO Q12H #10 tabs clavulanate 125 mg tablet doxycycline monohydrate 100 mg 100 mg PO BID #10 caps 11/23/24 capsule Allergies Allergy/AdvReac Type Severity Reaction Status Date / Time No Known Allergies Allergy Verified 11/23/24 14:27 Review of Systems Review of Systems Narrative Review of Systems: Review of system reviewed and within normal limits except mentioned in HPI ED Exam Narrative Physical exam: VITAL SIGNS: Reviewed. GENERAL APPEARANCE: Alert and interactive, follows commands, no acute distress, HEAD AND FACE: Non-traumatic. ENT: PERRL, pink conjunctivitis, eyelid no trauma, Mucous membrane moist. NECK: Supple, nontender, no nuchal rigidity. CHEST: No tenderness, no crepitus, no paradoxical movement, no retractions. LUNGS: Clear, well ventilated, symmetric, no rales, no wheezing, no ronchi, no stridor, good breath sounds bilaterally. HEART: Regular rate, regular rhythm, no murmur, no gallops. ABDOMEN: Soft, positive bowel sounds, nondistended, no guarding, nontender, no rebound, no masses, RECTAL: Deferred. GENITAL: Deferred. NEUROLOGICAL: Gross motor function intact sensory function intact, Appropriate for age. MUSCULOSKELETAL: low back nontender, full range of motion. EXTREMITIES: Bilateral lower leg extremity swelling, chronic wounds to the toes, with serous drainage, no cyanosis noted, pulses barely palpable due to swelling. Full range of motion. SKIN: Color pink, dry, no rash, no lacerations, no abrasions, no contusions. LYMPHATICS: Deferred. Course Quality Measures none Orders Category Date Time Status Bedside COVID-19 Antigen Test NOW Care 11/26/24 13:20 Active Bedside Influenza A&B Antigen Test NOW Care 11/26/24 13:20 Completed COVID-19 Screening Questionnaire NOW Care 11/26/24 18:13 Active Decision to Admit X1 Care 11/26/24 18:13 Completed Consult to General Surgery Stat Cons 11/26/24 18:12 Ordered Consult to Nephrology Stat Cons 11/26/24 17:12 Ordered XR chest 1V Stat Exams 11/26/24 13:19 Completed XR foot comp LT min 3V Stat Exams 11/26/24 13:19 Completed XR foot comp RT min 3V Stat Exams 11/26/24 13:19 Completed B-Type Natriuretic Peptide Stat Lab 11/26/24 13:50 Completed Blood Culture (Lab) Stat Lab 11/26/24 13:50 Received CBC Stat Lab 11/26/24 13:50 Completed Comprehensive Metabolic Panel Stat Lab 11/26/24 13:50 Completed Lactate (Lactic Acid) Stat Lab 11/26/24 13:50 Completed Partial Thromboplastin Time Stat Lab 11/26/24 13:50 Completed Procalcitonin Stat Lab 11/26/24 13:50 Completed Prothrombin Time with INR Stat Lab 11/26/24 13:50 Completed RSV [Respiratory Syncytial Virus Ag] Stat Lab 11/26/24 13:20 Ordered Troponin I Stat Lab 11/26/24 13:50 Completed Urinalysis, C/S if Indicated Stat Lab 11/26/24 13:19 Ordered Vital Signs Vital signs: Vital Signs Temperature 97.6 F 11/26/24 12:57 Pulse Rate 84 11/26/24 12:57 Respiratory Rate 20 11/26/24 12:57 Blood Pressure 114/74 11/26/24 12:57 Pulse Oximetry (%) 95 11/26/24 12:57 Oxygen Delivery Method Room Air 11/26/24 12:57 [facility] Patient data External records reviewed:: None Clinical information provided by:: none Social determinants that could affect healthcare access:: none Patient has the following chronic illnesses:: Diabetes mellitus, ESRD on hemodialysis, chronic foot infection How is presenting disease/condition affected by chronic disease/condition?: c aused by Evaluation data The following diagnostics were reviewed and interpreted by me:: lab results Lab and/or radiology exams considered but not ordered:: none Interpretation Summary: See results in [facility] Medications Medications considered but not ordered:: Plan Medication administrations:: Medication Administration History Dextrose (Dextrose 50%-Water Inj 50 Ml Syringe) 25 ml IV Q15MIN PRN PRN Reason: BG 50-70 responsive npo pt Stop: 12/26/24 18:41 Dextrose (Dextrose 50%-Water Inj 50 Ml Syringe) 50 ml IV Q15MIN PRN PRN Reason: BG <50 OR BG <70 & pt unresponsive Stop: 12/26/24 18:41 Glucagon (Glucagon Inj 1 Mg Vial) 1 mg IM Q15MIN PRN PRN Reason: BG <70, and no IV access Heparin Sodium (Porcine) (Heparin Sod Inj 1000 Unit/Ml Vial 10 Ml) 3,600 unit INDWELLCAT X1 PRN PRN Reason: DIALYSIS Stop: 12/10/24 20:56 Albumin Human (Albuminar-25 Ivpb) 25 gm in 100 mls @ 100 mls/hr IV PRN PRN PRN Reason: DIALYSIS Last Infusion: 11/26/24 21:36 Dose: Infused Documented By: Admin: 11/26/24 20:36 Dose: 100 mls/hr Documented By: ED Piperacillin/Tazobactam/Dextrose (Zosyn) 3.375 gm in 50 mls @ 12.5 mls/hr IV Q12HR [facility] Stop: 12/04/24 08:59 Last Admin: 11/27/24 09:40 Dose: 12.5 mls/hr Documented By: AV Insulin Human Lispro (Insulin Lispro (Admelog) 1 Unit/0.01 Ml Unit) 0 unit SC ACHS [facility]; Protocol Stop: 12/26/24 20:59 Last Admin: 11/27/24 12:21 Dose: 1 unit Documented By: HAIDER Co-signed By: FRAN Admin: 11/27/24 09:41 Dose: 1 unit Documented By: HAIDER Co-signed By: KYLE Admin: 11/26/24 23:10 Dose: Not Given Documented By: LB Non-Admin Reason: Other, see note Midodrine (Midodrine 5 Mg Tablet) 10 mg PO TID [facility] Stop: 12/27/24 08:44 Last Admin: 11/27/24 12:36 Dose: 10 mg Documented By: Admin: 11/27/24 09:40 Dose: 10 mg Documented By: AV Morphine Sulfate (Morphine Sulf Inj 10 Mg/Ml Vial) 1 mg IVP Q6H PRN PRN Reason: PAIN SCALE 7-10 (Severe Stop: 12/01/24 18:41 Ondansetron HCl (Ondansetron Inj 2 Mg/Ml Inj 2 Ml) 4 mg IV Q6H PRN; Protocol PRN Reason: NAUSEA OR VOMITING Stop: 12/26/24 18:41 Oxycodone/Acetaminophen (Oxycodone/Apap 5/325 Tablet) 1 tab PO Q6H PRN PRN Reason: PAIN SCALE 4-6 (Moderate Stop: 12/01/24 18:41 Pharmacy Consult (Vancomycin Pharmacy To Dose 1 Each Each) 1 each IV QDAY PRN PRN Reason: PROTOCOL Stop: 12/26/24 18:44 Discontinued Medications Vancomycin/Sodium Chloride (Vancomycin/Ns 1 Gm Ivpb) 200 mls @ 120 mls/hr IV X1 ONE Stop: 11/26/24 20:39 Last Admin: 11/26/24 23:34 Dose: 120 mls/hr Documented By: Admin: 11/26/24 20:30 Dose: Not Given Documented By: LB Non-Admin Reason: Held for Dialysis Piperacillin/Tazobactam/Dextrose (Zosyn) 3.375 gm in 50 mls @ 100 mls/hr IV X1 ONE Stop: 11/26/24 19:29 Last Admin: 11/26/24 20:30 Dose: Not Given Documented By: LB Non-Admin Reason: Held for Dialysis Vancomycin/Sodium Chloride (Vancomycin/Ns 500 Mg Ivpb) 100 mls @ 120 mls/hr IV X1 ONE Stop: 11/27/24 10:49 Last Admin: 11/27/24 09:39 Dose: 120 mls/hr Documented By: AV Pharmacy Consult (Vancomycin Pharmacy To Dose 1 Each Each) 1 each IV QDAY JACKIE Stop: 12/26/24 18:44 Last Admin: 11/26/24 22:08 Dose: Not Given Documented By: LB Non-Admin Reason: Held for Dialysis Sodium Polystyrene Sulfonate (Sod Polystyrene Sulfon Susp 15 Gm/60 Ml Btl) 15 gm PO X1 ONE Stop: 11/26/24 18:49 Last Admin: 11/26/24 22:07 Dose: Not Given Documented By: LB Non-Admin Reason: Held for Dialysis Patient received vancomycin IV Consultations Consultation(s) initiated? (list below): Yes Consultation #1 (Physician, Specialty, Details): Dr. Crotez, general surgeon on-call thank you Diagnosis Differential Diagnosis ED Complaint MDM: Hypotension, ESRD on hemodialysis, diabetic foot infection Most likely diagnosis given after review of the tests above:: Hypertension, ESRD on hemodialysis, diabetic foot infection Admission Indicated Admission indicated?: indicated Explain why admission is indicated or not indicated:: Is to be admitted for further management. Admission Request Was there a request for admission?: Yes Admission Attestation Admission request attestation: Discussed case with [Dr Rizvi ] from Hospitalist service regarding admission. Discussed patients ED course, exam findings, labs, and radiology results. The Hospitalist [agrees] to accept the patient for admission. Disposition Plan Disposition Plan: Admit Medical Decision Making MDM Narrative MDM Narrative: 84-year--old male patient with significant history of diabetes mellitus, chronic bilateral foot infection, ESRD, was sent to us by Dr. Waterman for hypotension. Patient went to dialysis today and was advised to go to the emergency room because the blood pressure was low, number unknown. Patient was recently seen here last Saturday and was diagnosed with pleural effusion and pneumonia. Currently taking doxycycline and Augmentin. Patient is also followed by health care marketing specialist, for chronic foot infection for the last 3 months. Was seen yesterday. Patient denies any fever but complained of continuous cough. And not feeling well. No medication was given prior to arrival. CBC showed no leukocytosis. X-ray of the foot showed no cortical destruction noted. Spoke with general surgeon, Dr. Cortez, discussed the case, and thank you Dr. Spoke with patient's dedicated driver, Dr. Waterman, discussed the case, and advised me to admit the patient for further management including IV antibiotic for foot infection. Differential Diagnosis Differential Diagnosis: Hypotension, ESRD on hemodialysis, diabetic foot infection Lab Data 11/27/24 04:44 11/27/24 04:44 Labs: Lab Results 11/26/24 Range/Units 13:50 WBC 9.8 (3.8-10.6) Thou/mm3 RBC 3.86 L (4.50-5.90) Miln/mm3 Hgb 12.3 L (13.5-16.0) g/dL Hct 37.6 L (41.0-53.0) % MCV 97 (80-100) fL MCH 31.9 (25.0-35.0) pg MCHC 32.7 (31.0-37.0) g/dl RDW Std Deviation 51.5 H (35.1-43.9) fL Plt Count 157 (140-440) Thou/mm3 Neut % (Auto) 82 H (37-80) % Lymph % (Auto) 8 L (10-50) % [place] % (Auto) 9 (0-12) % Eos % (Auto) 1 (0-10) % Baso % (Auto) 0 (0-2.5) % Neut # (Auto) 8.0 H (1.8-7.7) Thou/mm3 Lymph # (Auto) 0.8 L (1.0-4.8) Thou/mm3 [place] # (Auto) 0.9 H (0.0-0.8) Thou/mm3 Eos # (Auto) 0.1 (0.0-0.5) Thou/mm3 Baso # (Auto) 0.0 (0.0-0.2) Thou/mm3 Immature Gran # (Auto) 0.05 H (0.00-0.00) Thou/mm3 Absolute Nucleated RBC 0.00 (0.00-0.00) Thou/mm3 Immature Gran % 1 H (0-0) % Nucleated RBC % 0 (0) /100 WBC PT 15.1 H (9.0-12.2) Seconds INR 1.4 H (0.9-1.3) APTT 49.3 H (22.0-36.0) Seconds Sodium 131 L (136-145) mMol/L Potassium 5.7 H (3.4-5.1) mMol/L Chloride 94 L (98-107) mMol/L Carbon Dioxide 27.6 (20.0-31.0) mMol/L Anion Gap 9 (7-16) BUN 58 H (9-23) mg/dL Creatinine 4.4 H* (0.6-1.3) mg/dL Estim Creat Clear Calc 11.0 L (>60) mL/min eGFR 13 L* (60 - ) See Note BUN/Creatinine Ratio 13 (12-20) Ratio Glucose 203 H (74-106) mg/dL Calculated Osmolality 284 (275-295) Lactic Acid 1.8 (0.4-2.0) mMol/L Calcium 9.0 (8.3-10.6) mg/dL Corrected Calcium 9.6 (8.5-10.1) mg/dL Total Bilirubin 0.4 (0.3-1.2) mg/dL AST 17 (0-34) U/L ALT 12 (10-49) U/L Alkaline Phosphatase 109 (46-116) U/L Troponin I 0.023 (0.0-0.045) ng/mL B-Natriuretic Peptide > 3280 H* (0-100) pg/mL Total Protein 5.8 (5.7-8.2) gm/dL Albumin 3.2 L (3.4-4.8) gm/dL Globulin 2.6 (2.3-3.5) gm/dL Albumin/Globulin Ratio 1.2 (1.2-2.2) Procalcitonin 0.31 (0.0-0.49) ng/ml Discharge Plan Plan Patient Disposition: Admit Acute Care w/in Hospital Problem List Clinical Impression: Diabetic foot infection, ESRD needing dialysis
[2024-11-26 13:58] LABS: Lactate (Lactic Acid) 1.8 mMol/L (0.4-2.0)
[2024-11-26 14:02] LABS: Basophils % (Auto) 0 % (0-2.5); Eosinophils # (Auto) 0.1 Thou/mm3 (0.0-0.5); Eosinophils % (Auto) 1 % (0-10); Hematocrit 37.6 % (41.0-53.0); Hemoglobin 12.3 g/dL (13.5-16.0); Immature Granulocytes % (Auto) 1 % (0-0); Immature Granulocytes Auto 0.05 Thou/mm3 (0.00-0.00); Lymphocytes # (Auto) 0.8 Thou/mm3 (1.0-4.8); Lymphocytes % (Auto) 8 % (10-50); Mean Corpuscular HGB Conc 32.7 g/dl (31.0-37.0); Mean Corpuscular Hemoglobin 31.9 pg (25.0-35.0); Mean Corpuscular Volume 97 fL (80-100); Monocytes # (Auto) 0.9 Thou/mm3 (0.0-0.8); Monocytes % (Auto) 9 % (0-12); Neutrophils % (Auto) 82 % (37-80); Nucleated Red Blood Cell % 0 /100 WBC (0); Platelet Count 157 Thou/mm3 (140-440); RDW Standard Deviation 51.5 fL (35.1-43.9); Red Blood Count 3.86 Miln/mm3 (4.50-5.90); White Blood Count 9.8 Thou/mm3 (3.8-10.6)
[2024-11-26 14:22] LABS: INR 1.4 (0.9-1.3); Partial Thromboplastin Time 49.3 Seconds (22.0-36.0); Prothrombin Time 15.1 Seconds (9.0-12.2)
[2024-11-26 14:30] LABS: Alanine Aminotransferase 12 U/L (10-49); Albumin, Serum 3.2 gm/dL (3.4-4.8); Albumin/Globulin Ratio 1.2 (1.2-2.2); Alkaline Phosphatase 109 U/L (46-116); Anion Gap 9 (7-16); Aspartate Amino Transferase 17 U/L (0-34); BUN/Creatinine Ratio 13 Ratio (12-20); Bilirubin,Total 0.4 mg/dL (0.3-1.2); Blood Urea Nitrogen 58 mg/dL (9-23); Calcium (Corrected) 9.6 mg/dL (8.5-10.1); Carbon Dioxide 27.6 mMol/L (20.0-31.0); Chloride 94 mMol/L (98-107); Creatinine (Component) 4.4 mg/dL (0.6-1.3); Globulin 2.6 gm/dL (2.3-3.5); Glucose 203 mg/dL (74-106); Osmolality,Calculated 284 (275-295); Potassium 5.7 mMol/L (3.4-5.1); Procalcitonin 0.31 ng/ml (0.0-0.49); Sodium 131 mMol/L (136-145); Total Protein 5.8 gm/dL (5.7-8.2); Troponin I 0.023 ng/mL (0.0-0.045); eGFR 13 See Note
[2024-11-26 14:36] LABS: B-Type Natriuretic Peptide > 3280 pg/mL (0-100)
--- NOTE | 2024-11-26 18:19 | PD.HHHP ---
Documentation for date of: 11/26/24 HPI - Hospitalist History of Present Illness History of present illness: Patient is a 89-year-old male with history of ESRD on hemodialysis, followed by Dr. Waterman via right chest dialysis line, diabetes mellitus type 2, left eye blindness, hypertension, and BPH, who presented from the dialysis center with a chief complaint of hypotension. Patient reported dry cough but no shortness of breath. He denied any fevers. No nausea or vomiting. No dizziness or headaches. He has bilateral foot wounds that are chronic and he has been followed outpatient for that. He mentioned being diagnosed with pneumonia for which he was prescribed oral antibiotics recently. He was sent from the dialysis center after his BP was severely low. The exact BP number is unclear. In the ED, his initial BP was 78/45. The rest of his vital signs were stable. He was on room air. Labs showed mild chronic anemia. No leukocytosis. Potassium was 5.7. Sodium was 131. Glucose was 203. Troponin is negative. The BNP is elevated. X-ray of the chest showed mild CHF picture X-ray of the foot showed no bony destruction Patient received IV Zosyn and was admitted for further evaluation and management Past medical history includes Mobitz type II status post pacemaker insertion He denied any current tobacco use, alcohol use, or illicit drug use Review of Systems Review of Systems Narrative Review of Systems: General: No fevers, no chills, no weight loss, no sweating, no generalized weakness. Eyes: No changes in vision from baseline. 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 Respiratory: Positive cough, no sputum production, no shortness of breath. Cardiovascular: No chest pain, no palpitations, no extremity swelling. Abdomen: No abdominal pain, no nausea, no vomiting, no diarrhea, no constipation. Skin: No new rash reported. Musculoskeletal: No muscle pain, no muscle weakness. Neuro: No weakness, no numbness, no facial deviation, no dizziness. Psych: No current depressive symptoms. No anxiety. Meds Home Medications and Allergies Home Medications ?Medication ?Instructions ?Recorded ?Confirmed ?Type alprazolam 0.25 mg tablet 0.25 mg PO HS PRN Anxiety 09/22/24 11/23/24 History ergocalciferol (vitamin D2) 1,250 50,000 unit PO QWEEK 09/22/24 11/23/24 History mcg (50,000 unit) capsule insulin NPH isoph U-100 human 100 20 unit subcut BID 09/22/24 11/23/24 History unit/mL subcutaneous suspension (Novolin N NPH U-100 Insulin isophane) megestrol 400 mg/10 mL (40 mg/mL) 10 mg PO QDAY 09/22/24 11/23/24 History oral suspension vitamin B complex-vitamin C-folic 1 tab PO QDAY 09/22/24 11/23/24 History acid 0.8 mg tablet (Marlen-Courtney) tamsulosin 0.4 mg capsule 0.4 mg PO DAILY 10/07/24 11/23/24 History doxycycline hyclate 100 mg tablet 100 mg PO BID 11/23/24 11/23/24 History midodrine 10 mg tablet 10 mg PO TID 11/23/24 11/23/24 History sacubitril 24 mg-valsartan 26 mg See Rx Instructions PO BID 11/23/24 11/23/24 History tablet (Entresto) Allergies Allergy/AdvReac Type Severity Reaction Status Date / Time No Known Allergies Allergy Verified 11/23/24 14:27 Exam Vital Signs Temp Pulse Resp BP Pulse Ox O2 Del Method 97.6 F 84 20 114/74 95 Room Air 11/26/24 12:57 11/26/24 12:57 11/26/24 12:57 11/26/24 12:57 11/26/24 12:57 11/26/24 12:57 Narrative General: Alert and oriented x3. In no acute distress. Eyes: Left eye haziness/cataract. He is blind in his left eye. He wears sunglasses HEENT: Atraumatic, normocephalic. No JVD noted. Cardiovascular: Normal S1 and S2. Normal rate and regular rhythm. No murmurs appreciated. No peripheral pitting edema noted. No JVD noted. Respiratory: No respiratory distress. Lungs are clear to auscultation bilaterally. No wheezing or crackles heard. Abdomen: Soft, nontender, nondistended. Skin: No rash. Right dialysis line in place appears intact without erythema or evidence of infection. Pacemaker is noted on the left chest. Bilateral lower foot diabetic ulcers with areas of wet gangrene without purulent discharge. Musculoskeletal: No gross injuries except as above. Able to move all 4 extremities. Neuro: Alert and oriented x3. Sensation is intact throughout. Strength is 5/5 and symmetric. No focal neuro deficits. Psych: Normal affect and mood. Results - Hospitalist Labs Diagrams: 11/26/24 13:50 11/26/24 13:50 Labs: Short CBC 11/26/24 Range/Units 13:50 WBC 9.8 (3.8-10.6) Thou/mm3 Hgb 12.3 L (13.5-16.0) g/dL Hct 37.6 L (41.0-53.0) % Plt Count 157 (140-440) Thou/mm3 BMP 11/26/24 13:50 Sodium 131 L Potassium 5.7 H Chloride 94 L Carbon Dioxide 27.6 BUN 58 H Creatinine 4.4 H* Glucose 203 H Calcium 9.0 Cardiac Enzymes 11/26/24 Range/Units 13:50 Troponin I 0.023 (0.0-0.045) ng/mL Liver Function 11/26/24 Range/Units 13:50 Total Bilirubin 0.4 (0.3-1.2) mg/dL AST 17 (0-34) U/L ALT 12 (10-49) U/L Alkaline Phosphatase 109 (46-116) U/L Albumin 3.2 L (3.4-4.8) gm/dL Assessment & Plan -Hospitalist Patient Synopsis 84-year-old male with history of ESRD on hemodialysis who presented after being found hypotensive during the dialysis session. He also reported persistent cough. He was found to have volume overload and worsening diabetic foot wounds Acute hypotension Resolved and BP is currently stable. Likely in the setting of hemodialysis. Avoid antihypertensive treatment. Monitor vital signs closely Diabetic foot wounds Wet gangrene of bilateral feet In the setting of long standing diabetes mellitus on insulin Foot x-ray did not show any foot destruction however osteomyelitis cannot be ruled out Plan: Wound care Management of diabetes as below IV vancomycin/Zosyn, renally dosed Consult general surgery for evaluation for need for debridement Hyperkalemia In the setting of incomplete dialysis Plan: Consulted nephrology for hemodialysis Gave Kayexalate Monitor BMP Hyponatremia Likely in setting of mild hypervolemia in setting of ESRD Plan: Hemodialysis as below Monitor BMP Persistent dry cough Possibly due to volume overload versus acute viral illness. He was recently started on antibiotics for possible pneumonia Chest x-ray showed mild CHF picture Plan: Hemodialysis as below Ordered COVID-19 test Insulin-dependent diabetes mellitus, type II Complicated by diabetic foot ulcers Patient is unsure about how much insulin he takes at home Plan: Start sliding scale insulin Monitor fingersticks Order A1c ESRD on hemodialysis Saturday, , and Saturday schedule via right upper chest dialysis line Followed by Dr. Waterman Plan: Consult Dr. 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 Styles. Outpatient follow-up Will need to check device compatibility if decision was made to proceed with foot MRI. CODE STATUS is DNR/DNI. Discussed with the patient. He expressed understanding of what that means Level of care is telemetry given the acute hypotension on presentation and hyperkalemia Diet is renal diet DVT prophylaxis: SCDs Lines are IV peripherals and right IJ PermCath Quality Measures Quality Measures VTE prophylaxis (Subcutaneous heparin) Advance care planning discussed with:: patient
--- NOTE | 2024-11-26 19:47 | PD.NEPHCONS ---
Documented by User: Courtney Waterman MD 11/29/24 08:27 History of Present Illness Data of Consult Consult date: 11/26/24 Requesting Physician: Pawan Rizvi MD Primary Care Provider: Francisco Wilson MD Consult Narrative Reason for consult: ESRD, need for dialysis History of present illness: Mr. Bates is a 84-year-old male with significant past medical history significant for diabetes mellitus type 2, left eye blindness, hypertension, BPH and ESRD on hemodialysis following Dr. Waterman, sent from hemodialysis clinic for soft blood pressure, and unable to tolerate hemodialysis. Patient reported that he underwent 2-hour of hemodialysis over there, and when blood pressure was soft, was sent to the ED. Currently, he denied any lightheadedness, chest pain, SOB, abdominal pain, any changes in bowel or bladder habit. He admitted bilateral lower limb edema. During our evaluation, his vitals were stable with blood pressure 115/77, saturating 94% on 4 L NC. CBC fairly stable, CMP revealed sodium 136, potassium 4.9, chloride 97, BUN 45, creatinine 3.7, EGFR 15, A1c 7.0 and magnesium 2.8. Bilateral foot x-ray revealed no fabrizio cortical bone destruction. CXR significant for mild chronic heart failure pattern. PMH: As mentioned above Social history: Denied any smoking, alcohol or illicit drug use Medications: To be reconciled Allergies: No known allergies Nephrology consultation was done for further management of ESRD and hemodialysis. cc:: cc: Pawan Rizvi MD Past Medical History Past Medical History NEUROLOGIC: Negative Neurological Disorders or Seizures CARDIAC: Positive Cardiac Disorders, Angina, Hypercholesterolemia, Congestive Heart Failure and Hypotension; Negative Hypertension RESPIRATORY: Positive Respiratory Disorders (home o2); Negative Chronic Obstructive Pulmonary Disease (COPD), Asthma or Bronchitis GASTROINTESTINAL: Positive Gastrointestinal Disorders and Gastrointestinal Bleed; Negative Hepatitis or Ulcer GENITOURINARY: Positive Genitourinary Disorders, Renal Disease, Dialysis and Benign Prostatic Hyperplasia MUSCULOSKELETAL: Positive Musculoskeletal Disorders; Negative Arthritis ENT: Positive Cataracts, Blind and Retinal Detachment ENDOCRINE: Positive Endocrine Disorders and Diabetes Mellitus Type 2; Negative Diabetes Mellitus Type 1 HEMATOLOGIC: Negative Blood Disorders, Anemia or Clotting Problems PSYCHO/SOCIAL: Positive Depression and Anxiety OTHER HISTORY: Positive Chicken Pox, Measles and Mumps; Negative Hospitalization, Autoimmune Disease, Falls, Blood Transfusions, Blood Transfusion Reaction, Anesthesia Reactions, Organ Transplant or Cancer Family History FAMILY HISTORY: Negative Family Cardiac Disorders or Family Cancer Surgical History SURGICAL: Positive Cardiac Surgery, Pacemaker, Angiogram, Ear Surgery and Joint Replacement; Negative Abdominal Surgery, Nephrectomy, Neurologic Surgery, Mastectomy or Organ Transplant Social History SMOKING STATUS: Never smoker Past Medical History Comments PMH COMMENT: PMH: As mentioned above Social history: Denied any smoking, alcohol or illicit drug use Medications: To be reconciled Allergies: No known allergies Meds Home Medications and Allergies Home Medications ?Medication ?Instructions ?Recorded ?Confirmed ?Type alprazolam 0.25 mg tablet 0.25 mg PO HS PRN Anxiety 09/22/24 11/28/24 History ergocalciferol (vitamin D2) 1,250 50,000 unit PO QWEEK 09/22/24 11/28/24 History mcg (50,000 unit) capsule insulin NPH isoph U-100 human 100 20 unit subcut BID 09/22/24 11/23/24 History unit/mL subcutaneous suspension (Novolin N NPH U-100 Insulin isophane) megestrol 400 mg/10 mL (40 mg/mL) 10 mg PO QDAY 09/22/24 11/23/24 History oral suspension vitamin B complex-vitamin C-folic 1 tab PO QDAY 09/22/24 11/23/24 History acid 0.8 mg tablet (Marlen-Courtney) tamsulosin 0.4 mg capsule 0.4 mg PO DAILY 10/07/24 11/23/24 History doxycycline hyclate 100 mg tablet 100 mg PO BID 11/23/24 11/28/24 History midodrine 10 mg tablet 10 mg PO TID 11/23/24 11/23/24 History sacubitril 24 mg-valsartan 26 mg See Rx Instructions PO BID 11/23/24 11/23/24 History tablet (Entresto) Allergies Allergy/AdvReac Type Severity Reaction Status Date / Time No Known Allergies Allergy Verified 11/23/24 14:27 Exam Vital Signs Temp Pulse Resp BP Pulse Ox O2 Del Method O2 Flow Rate 36.3 C 89 18 96/64 98 Nasal Cannula 2 11/26/24 19:50 11/26/24 21:45 11/26/24 19:50 11/26/24 21:45 11/26/24 19:50 11/26/24 19:30 11/26/24 19:50 Results Labs 11/29/24 05:24 11/29/24 05:24 Labs: Short CBC 11/26/24 Range/Units 13:50 WBC 9.8 (3.8-10.6) Thou/mm3 Hgb 12.3 L (13.5-16.0) g/dL Hct 37.6 L (41.0-53.0) % Plt Count 157 (140-440) Thou/mm3 BMP 11/26/24 13:50 Sodium 131 L Potassium 5.7 H Chloride 94 L Carbon Dioxide 27.6 BUN 58 H Creatinine 4.4 H* Glucose 203 H Calcium 9.0 Cardiac Enzymes 11/26/24 Range/Units 13:50 Troponin I 0.023 (0.0-0.045) ng/mL Liver Function 11/26/24 Range/Units 13:50 Total Bilirubin 0.4 (0.3-1.2) mg/dL AST 17 (0-34) U/L ALT 12 (10-49) U/L Alkaline Phosphatase 109 (46-116) U/L Albumin 3.2 L (3.4-4.8) gm/dL Assessment & Plan Additional Assessment & Plan Additional Plan: The patient is a 84-year-old male with significant past medical history significant for diabetes mellitus type 2, left eye blindness, hypertension, BPH and ESRD on hemodialysis following Dr. Waterman, sent from hemodialysis clinic for soft blood pressure, and unable to tolerate hemodialysis. Nephrology consultation was done for further management of ESRD and hemodialysis. #Acute hypotension 2/2 #Cardiogenic shock Likely secondary to hemodialysis with removal of fluid Patient was undergoing hemodialysis, and was found to have hypotension, was sent to ED from hemodialysis clinic -During evaluation in the ED, blood pressure was soft but stable -Continue to monitor -Hold any antihypertensive -Consider adding midodrine 10 mg 3 times daily #Hyperkalemia Secondary to ESRD -Kayexalate 15 g p.o. x 1 -Monitor potassium level in the a.m. -Hemodialysis if blood pressure is stable and tolerates #Mild hypervolemic hypoosmolar hyponatremia Secondary to volume overload in the setting of ESRD -Hemodialysis if blood pressure stabilizes to remove extra fluid -Continue to monitor daily sodium level #ESRD on hemodialysis TTS Secondary to diabetic and hypertensive nephropathy -Hemodialysis if blood pressure stabilizes #Acute exacerbation of HFrEF, LVEF 10 to 15% #Diabetic foot wounds #Persistent dry cough #Insulin-dependent diabetes mellitus, type II #Second-degree Mobitz type II AV block status post pacemaker -Management deferred to primary hospitalist team Thank you for your opportunity to participate nephrology team in this patient care. The patient's management plan was discussed with my attending physician MD Hay Mendes MD, PGY2 Patient seen and examined with resident physician Dr. Lezama. Note reviewed, agree with findings and recommendations. Dialysis ordered today. Hemodialysis for 3 hours, 2K, ultrafiltration 2-3 L, Epogen 6000, no heparin ordered. Plan of care discussed with the dialysis nurse. Please see dialysis flowsheet for further details. However blood pressure was very low that I could not complete dialysis. Will reevaluate tomorrow. Continue with midodrine. Documented by User: Hay Lezama MD 11/27/24 14:43 History of Present Illness Consult Narrative History of present illness: The patient is a 84-year-old male with significant past medical history significant for diabetes mellitus type 2, left eye blindness, hypertension, BPH and ESRD on hemodialysis following Dr. Waterman, sent from hemodialysis clinic for soft blood pressure, and unable to tolerate hemodialysis. Patient reported that he underwent 2-hour of hemodialysis over there, and when blood pressure was soft, was sent to the ED. Currently, he denied any lightheadedness, chest pain, SOB, abdominal pain, any changes in bowel or bladder habit. He admitted bilateral lower limb edema. During our evaluation, his vitals were stable with blood pressure 115/77, saturating 94% on 4 L NC. CBC fairly stable, CMP revealed sodium 136, potassium 4.9, chloride 97, BUN 45, creatinine 3.7, EGFR 15, A1c 7.0 and magnesium 2.8. Bilateral foot x-ray revealed no fabrizio cortical bone destruction. CXR significant for mild chronic heart failure pattern. PMH: As mentioned above Social history: Denied any smoking, alcohol or illicit drug use Medications: To be reconciled Allergies: No known allergies Nephrology consultation was done for further management of ESRD and hemodialysis. Review of Systems Review of Systems Systems Reviewed: All systems reviewed, normal except as documented Meds Home Medications and Allergies Home Medications ?Medication ?Instructions ?Recorded ?Confirmed ?Type alprazolam 0.25 mg tablet 0.25 mg PO HS PRN Anxiety 09/22/24 11/28/24 History ergocalciferol (vitamin D2) 1,250 50,000 unit PO QWEEK 09/22/24 11/28/24 History mcg (50,000 unit) capsule insulin NPH isoph U-100 human 100 20 unit subcut BID 09/22/24 11/23/24 History unit/mL subcutaneous suspension (Novolin N NPH U-100 Insulin isophane) megestrol 400 mg/10 mL (40 mg/mL) 10 mg PO QDAY 09/22/24 11/23/24 History oral suspension vitamin B complex-vitamin C-folic 1 tab PO QDAY 09/22/24 11/23/24 History acid 0.8 mg tablet (Marlen-Courtney) tamsulosin 0.4 mg capsule 0.4 mg PO DAILY 10/07/24 11/23/24 History doxycycline hyclate 100 mg tablet 100 mg PO BID 11/23/24 11/28/24 History midodrine 10 mg tablet 10 mg PO TID 11/23/24 11/23/24 History sacubitril 24 mg-valsartan 26 mg See Rx Instructions PO BID 11/23/24 11/23/24 History tablet (Entresto) Allergies Allergy/AdvReac Type Severity Reaction Status Date / Time No Known Allergies Allergy Verified 11/23/24 14:27 Exam Narrative Exam General: No acute distress, Alert and Oriented x 3 HEENT: Left eye haziness/cataract. He is blind in his left eye. He wears sunglasses, Moist mucous membranes, oropharynx clear, Neck: Supple, No masses, No JVD CVS: S1S2 Regular rate and rhythm, No murmurs, rubs or gallops Lungs: Clear to auscultation with no accessory use, no wheeze no rhonchi Abd: Soft, NT/ND, +BS, no organomegaly Ext: 3+ bilateral lower limb edema, Right dialysis line in place appears intact without erythema or evidence of infection. Pacemaker is noted on the left chest. Bilateral lower foot diabetic ulcers with areas of wet gangrene without purulent discharge Skin: No rash Psych: Appropriate mood and affect Results Labs 11/29/24 05:24 11/29/24 05:24 Assessment & Plan Additional Assessment & Plan Additional Plan: The patient is a 84-year-old male with significant past medical history significant for diabetes mellitus type 2, left eye blindness, hypertension, BPH and ESRD on hemodialysis following Dr. Waterman, sent from hemodialysis clinic for soft blood pressure, and unable to tolerate hemodialysis. Nephrology consultation was done for further management of ESRD and hemodialysis. #Acute hypotension 2/2 #Cardiogenic shock Likely secondary to hemodialysis with removal of fluid Patient was undergoing hemodialysis, and was found to have hypotension, was sent to ED from hemodialysis clinic -During evaluation in the ED, blood pressure was soft but stable -Continue to monitor -Hold any antihypertensive -Consider adding midodrine 10 mg 3 times daily #Hyperkalemia Secondary to ESRD -Kayexalate 15 g p.o. x 1 -Monitor potassium level in the a.m. -Hemodialysis if blood pressure is stable and tolerates #Mild hypervolemic hypoosmolar hyponatremia Secondary to volume overload in the setting of ESRD -Hemodialysis if blood pressure stabilizes to remove extra fluid -Continue to monitor daily sodium level #ESRD on hemodialysis TTS Secondary to diabetic and hypertensive nephropathy -Hemodialysis if blood pressure stabilizes #Acute exacerbation of HFrEF, LVEF 10 to 15% #Diabetic foot wounds #Wet gangrene of bilateral feet #Persistent dry cough #Insulin-dependent diabetes mellitus, type II #Second-degree Mobitz type II AV block status post pacemaker -Management deferred to primary hospitalist team Thank you for your opportunity to participate nephrology team in this patient care. The patient's management plan was discussed with my attending physician MD Hay Mendes MD, PGY2
--- NOTE | 2024-11-26 19:59 | PC.NURSE ---
To dialysis RM #[id number] via gurney on portable O2 and monitor. Accompanied by fingernail sculpturer.
[2024-11-26] MEDS: ALBUMIN HUMAN 25% IVPB 25 GM/100 ML BTL IV (20:36)
--- NOTE | 2024-11-26 20:49 | PC.NURSE ---
On dialysis at this time. Dr. Waterman ordered to dialyze pt for 2 hrs tonight, and will dialyze again tomorrow. Pt anthony complaints. VS stable
--- NOTE | 2024-11-26 21:16 | PC.NURSE ---
Pt still in dialysis.
--- NOTE | 2024-11-26 21:50 | PC.NURSE ---
pt still in dialysis
--- NOTE | 2024-11-26 22:42 | PC.NURSE ---
Dialysis completed for 2 hrs, tolerated well.? Respiration even and unlabored. Saturating at 96% on O2 at 2L/in via nc.? Able to removed 1300 ml of fluid net.? Post tx BP 104/69, HR 89, Temp 96.8.? Pt back in ER rm 8.? Call light within reached. Report given to Juan OSBORN
--- NOTE | 2024-11-26 22:54 | PC.NURSE ---
Pt back from Dialysis.
[2024-11-26] MEDS: VANCOMYCIN/NS 1 GM IVPB 200 ML IV (23:34)
[2024-11-27] VITALS (9 sets, daily range): BP systolic 96–125; BP diastolic 58–77; PULSE 83–108; RESP 14–25; TEMP 36.1–36.8; O2SAT 93–100
[2024-11-27 05:42] LABS: Basophils % (Auto) 0 % (0-2.5); Eosinophils # (Auto) 0.1 Thou/mm3 (0.0-0.5); Eosinophils % (Auto) 1 % (0-10); Hematocrit 38.4 % (41.0-53.0); Hemoglobin 12.3 g/dL (13.5-16.0); Immature Granulocytes % (Auto) 0 % (0-0); Immature Granulocytes Auto 0.03 Thou/mm3 (0.00-0.00); Lymphocytes # (Auto) 0.8 Thou/mm3 (1.0-4.8); Lymphocytes % (Auto) 9 % (10-50); Mean Corpuscular Hemoglobin 31.5 pg (25.0-35.0); Mean Corpuscular Volume 99 fL (80-100); Monocytes # (Auto) 0.8 Thou/mm3 (0.0-0.8); Monocytes % (Auto) 9 % (0-12); Neutrophils # (Auto) 7.1 Thou/mm3 (1.8-7.7); Neutrophils % (Auto) 80 % (37-80); Nucleated Red Blood Cell % 0 /100 WBC (0); Platelet Count 147 Thou/mm3 (140-440); RDW Standard Deviation 51.9 fL (35.1-43.9); White Blood Count 8.8 Thou/mm3 (3.8-10.6)
[2024-11-27 05:58] LABS: Glucose Estimated Average 154 mg/dL (80-131)
[2024-11-27 06:47] LABS: Anion Gap 15 (7-16); BUN/Creatinine Ratio 12 Ratio (12-20); Blood Urea Nitrogen 45 mg/dL (9-23); Calcium 9.2 mg/dL (8.3-10.6); Carbon Dioxide 23.7 mMol/L (20.0-31.0); Chloride 97 mMol/L (98-107); Creatinine (Component) 3.7 mg/dL (0.6-1.3); Estimated Creatinine Clearance 13.1 mL/min (>60); Glucose 162 mg/dL (74-106); Magnesium 2.8 mg/dL (1.6-2.6); Osmolality,Calculated 287 (275-295); Phosphorous 3.8 mg/dL (2.4-5.1); Potassium 4.9 mMol/L (3.4-5.1); Sodium 136 mMol/L (136-145); eGFR 15 See Note
[2024-11-27 07:46] LABS: Vancomycin,Random 11.4 mcg/mL
[2024-11-27 08:50] LABS: Hepatitis A Antibody IgM Non Reactive (Non React); Hepatitis B Core Antibody IgM Non Reactive (Non React); Hepatitis B Surface Ab NonReact(Not Immune) (Immune); Hepatitis B Surface Antigen Non Reactive (Non React); Hepatitis C Antibody Non Reactive (Non React)
[2024-11-27] MEDS: VANCOMYCIN/NS 500 MG IVPB 100 ML 120 MG IV (09:39)
[2024-11-27] MEDS: MIDODRINE 5 MG TABLET 10 MG PO ×3 (09:40→21:41)
[2024-11-27] MEDS: PIPER/TAZO 3.375 GM 3.375 GM/50 ML BAG IV ×2 (09:40→21:40)
[2024-11-27] MEDS: INSULIN LISPRO (AdmeLOG) 1 UNIT/0.01 ML UNIT SC ×3 (09:41→17:59)
--- NOTE | 2024-11-27 12:11 | PC.SS ---
ORE CRUSHING DUST COLLECTOR conducted phone contact with the patient?s spouse, Melanie Perdue ; to conduct initial assessment and to discuss discharge planning.? ORE CRUSHING DUST COLLECTOR utilized translation line to assist with discussion.? Patient resides at home with spouse.? Patient utilizes a walker to assist with ambulation.? Patient utilizes home oxygen.? Patient requires assistance with completion of ADL?s.? Patient?s medical surrogate decision maker is spouse, Melanie Perdue.? Patient?s PCP is Dr. Wilson. Patient is aligned with dialysis.? Schedule is mike, Meme, Sat.? Patient?s center punch operator is Dr. Waterman.? Patient utilizes [facility] for medication services. ?Plan is for the patient to return home at the time of discharge.? No further intervention required at this time, hospital social worker will be available to address any further concerns.? Next of Kin: Melanie Rodriguezsabra D/C Plan: Home
--- NOTE | 2024-11-27 14:20 | ESCONSULT_ITS ---
<Statement entered by Yojana Styles MD - 11/30/24 07:56> The patient is well-known to me longstanding history of ischemic cardiomyopathy low ejection fraction 15% poor prognosis is here for dialysis patient has severe significant multivessel CAD not suitable for bypass surgery or stents poor prognosis overall will recommend continuing dialysis for palliative therapy and fluid removal agree with the treatment plan recommendation as documented by Dr. Jarett Braga, PGY 1 HPI Data of Consult Requesting Physician: Yojana Styles MD Admitting Provider: Pawan Rizvi MD Attending Provider: Yojana Styles MD Primary Care Provider: Francisco Wilson MD Consult Narrative Reason for consult: HFrEF, inability to tolerate dialysis History of present illness: 84-year-old male with significant past medical history significant for diabetes mellitus type 2, left eye blindness, hypertension, BPH and ESRD on hemodialysis following Dr. Waterman, pacemaker implantation due to Mobitz type II heart block, sent from hemodialysis clinic for soft blood pressure, and unable to tolerate hemodialysis. Patient reported that he underwent 2-hour of hemodialysis over there, and when blood pressure was soft, was sent to the ED. Patient reportedly has HFrEF with EF 10-15%, end-stage heart disease. Patient vitals stable and within normal limits on 4 L nasal cannula. EKG showed paced rhythm. Patient complains of shortness of breath, generalized weakness, orthopnea for several months. Patient notes that bilateral lower extremity edema has gotten worse over past month. Cardiology consulted due to severe heart failure and inability to tolerate dialysis due to hypotension. PMH: As mentioned above Social history: Denied any smoking, alcohol or illicit drug use Medications: To be reconciled Allergies: No known allergies cc:: cc: Yojana Styles MD Review of Systems Review of Systems Systems Reviewed: All systems reviewed, normal except as documented Past Medical History Past Medical History Comments PMH COMMENT: PMH: As mentioned above Social history: Denied any smoking, alcohol or illicit drug use Medications: To be reconciled Allergies: No known allergies Exam Vital Signs Temp Pulse Resp BP Pulse Ox O2 Del Method O2 Flow Rate 97.4 F 94 19 115/77 94 L Nasal Cannula 4 11/27/24 12:00 11/27/24 12:36 11/27/24 12:00 11/27/24 12:36 11/27/24 12:00 11/27/24 12:00 11/27/24 12:00 Narrative Exam PE: Gen: Thin, chronically ill-appearing. HEENT: NCAT, PERRLA, EOMI, MMM, anicteric conjunctivae. Left eye cataracts, clouded. CVS: normal S1 and S2. RRR. No M/R/G. JVD. Resp: CTA B/L. No rhonchi, rales, crackles or wheezing. Diminished lung sounds throughout. Abd: soft, non-tender, non-distended. BS+ in all 4 quadrants. MSK: Good ROM in BUE & BLE. No rash. 3+ pitting edema bilateral lower extremities. Dry gangrene right foot. Left foot skin peeling. Neuro: CN II-XII grossly intact. Strength 5/5 in BUE & BLE. Alert and oriented x3. Psych: appropriate mood and affect. Results Labs 11/27/24 04:44 11/27/24 04:44 Labs: Short CBC 11/27/24 Range/Units 04:44 WBC 8.8 (3.8-10.6) Thou/mm3 Hgb 12.3 L (13.5-16.0) g/dL Hct 38.4 L (41.0-53.0) % Plt Count 147 (140-440) Thou/mm3 BMP 11/26/24 11/27/24 13:50 04:44 Sodium 131 L 136 Potassium 5.7 H 4.9 D Chloride 94 L 97 L Carbon Dioxide 27.6 23.7 BUN 58 H 45 H Creatinine 4.4 H* 3.7 H D Glucose 203 H 162 H Calcium 9.0 9.2 Cardiac Enzymes 11/26/24 Range/Units 13:50 Troponin I 0.023 (0.0-0.045) ng/mL Liver Function 11/26/24 Range/Units 13:50 Total Bilirubin 0.4 (0.3-1.2) mg/dL AST 17 (0-34) U/L ALT 12 (10-49) U/L Alkaline Phosphatase 109 (46-116) U/L Albumin 3.2 L (3.4-4.8) gm/dL Quality Measures Quality Measures VTE prophylaxis Advance care planning discussed with:: patient Medications Home Medications and Allergies Home Medications ?Medication ?Instructions ?Recorded ?Confirmed ?Type alprazolam 0.25 mg tablet 0.25 mg PO HS PRN Anxiety 11/23/24 History ergocalciferol (vitamin D2) 1,250 50,000 unit PO QWEEK 09/22/24 11/23/24 History mcg (50,000 unit) capsule insulin NPH isoph U-100 human 100 20 unit subcut BID 1 11/23/23 11/23/24 History unit/mL subcutaneous suspension (Novolin N NPH U-100 Insulin isophane) megestrol 400 mg/10 mL (40 mg/mL) 10 mg PO QDAY 11/23/24 History oral suspension vitamin B complex-vitamin C-folic 1 tab PO QDAY 11/23/24 History acid 0.8 mg tablet (Marlen-Courtney) tamsulosin 0.4 mg capsule 0.4 mg PO DAILY 10/07/2401/12 History doxycycline hyclate 100 mg tablet 100 mg PO BID 11/23/24 History midodrine 10 mg tablet 10 mg PO TID 11/23/24 History sacubitril 24 mg-valsartan 26 mg See Rx Instructions P O BID 11/23/24 11/23/24 History tablet (Entresto) Allergies Allergy/AdvReac Type Severity Reaction Status Date / Time No Known Allergies Allergy Verified 11/23/24 14:27 Visit Medications Dextrose (Dextrose 50%-Water Inj 50 Ml Syringe) 25 ml IV Q15MIN PRN PRN Reason: BG 50-70 responsive npo pt Stop: 12/26/24 18:41 Dextrose (Dextrose 50%-Water Inj 50 Ml Syringe) 50 ml IV Q15MIN PRN PRN Reason: BG <50 OR BG <70 & pt unresponsive Stop: 12/26/24 18:41 Glucagon (Glucagon Inj 1 Mg Vial) 1 mg IM Q15MIN PRN PRN Reason: BG <70, and no IV access Heparin Sodium (Porcine) (Heparin Sod Inj 1000 Unit/Ml Vial 10 Ml) 3,600 unit INDWELLCAT X1 PRN PRN Reason: DIALYSIS Stop: 12/10/24 20:56 Albumin Human (Albuminar-25 Ivpb) 25 gm in 100 mls @ 100 mls/hr IV PRN PRN PRN Reason: DIALYSIS Last Infusion: 11/26/24 21:36 Dose: Infused Piperacillin/Tazobactam/Dextrose (Zosyn) 3.375 gm in 50 mls @ 12.5 mls/hr IV Q12HR [facility] [place] Stop: 12/04/24 08:59 Last Admin: 11/27/24 09:40 Dose: 12.5 mls/hr Insulin Human Lispro (Insulin Lispro (Admelog) 1 Unit/0.01 Ml Unit) 0 unit SC [facility]; Protocol Stop: 12/26/24 20:59 Last Admin: 11/27/24 12:21 Dose: 1 unit Midodrine (Midodrine 5 Mg Tablet) 10 mg PO TID [facility] [place] Stop: 12/27/24 08:44 Last Admin: 11/27/24 12:36 Dose: 10 mg Morphine Sulfate (Morphine Sulf Inj 10 Mg/Ml Vial) 1 mg IVP Q6H PRN PRN Reason: PAIN SCALE 7-10 (Severe Stop: 12/01/24 18:41 Ondansetron HCl (Ondansetron Inj 2 Mg/Ml Inj 2 Ml) 4 mg IV Q6H PRN; Protocol PRN Reason: NAUSEA OR VOMITING Stop: 12/26/24 18:41 Oxycodone/Acetaminophen (Oxycodone/Apap 5/325 Tablet) 1 tab PO Q6H PRN PRN Reason: PAIN SCALE 4-6 (Moderate Stop: 12/01/24 18:41 Pharmacy Consult (Vancomycin Pharmacy To Dose 1 Each Each) 1 each IV QDAY PRN PRN Reason: PROTOCOL Stop: 12/26/24 18:44 Discontinued Medications Vancomycin/Sodium Chloride (Vancomycin/Ns 1 Gm Ivpb) 200 mls @ 120 mls/hr IV X1 ONE Stop: 11/26/24 20:39 Last Admin: 11/26/24 23:34 Dose: 120 mls/hr Piperacillin/Tazobactam/Dextrose (Zosyn) 3.375 gm in 50 mls @ 100 mls/hr IV X1 ONE Stop: 11/26/24 19:29 Last Admin: 11/26/24 20:30 Dose: Not Given Vancomycin/Sodium Chloride (Vancomycin/Ns 500 Mg Ivpb) 100 mls @ 120 mls/hr IV X1 ONE Stop: 11/27/24 10:49 Last Admin: 11/27/24 09:39 Dose: 120 mls/hr Pharmacy Consult (Vancomycin Pharmacy To Dose 1 Each Each) 1 each IV QDAY JACKIE Stop: 12/26/24 18:44 Last Admin: 11/26/24 22:08 Dose: Not Given Sodium Polystyrene Sulfonate (Sod Polystyrene Sulfon Susp 15 Gm/60 Ml Btl) 15 gm PO X1 ONE Stop: 11/26/24 18:49 Last Admin: 11/26/24 22:07 Dose: Not Given Assessment & Plan Plan 84-year-old male with significant past medical history significant for diabetes mellitus type 2, left eye blindness, hypertension, BPH and ESRD on hemodialysis following Dr. Waterman, pacemaker plantation due to Mobitz type II heart block, sent from hemodialysis clinic for soft blood pressure, and unable to tolerate hemodialysis. #Acute exacerbation of HFrEF, LVEF 10 to 15% #Acute hypotension Likely exacerbated by hemodialysis with removal of fluid. Patient was undergoing hemodialysis, and was found to have hypotension, was sent to ED from hemodialysis clinic. Patient reportedly has HFrEF, 10 to 15% ejection fraction. During hemodialysis session with removal of fluid, patient developed severe hypotension and was sent to ED. In ED patient blood pressures 78/45. Cardiology consulted for further management. -Continue to monitor -Hold any antihypertensive -Consider adding midodrine 10 mg 3 times daily -Continue goals of care conversation #Second-degree Mobitz type II AV block status post pacemaker Patient is history of Mobitz type II heart block, treated with pacemaker. EKG shows paced rhythm, heart rate within normal limits. -Telemonitoring #Hyperkalemia #Mild hypervolemic hypoosmolar hyponatremia #ESRD on hemodialysis TTS #Diabetic foot wounds #Gangrene of foot #Persistent dry cough #Insulin-dependent diabetes mellitus, type II Management as per primary team Plan of care discussed with attending Dr. Styles. Jarett Gerber MD PGY?1
--- NOTE | 2024-11-27 14:37 | ESPR_ITS ---
Documentation for date of: 11/27/24 Subjective Subjective Interval history: History of present illness: The patient is a 84-year-old male with significant past medical history significant for diabetes mellitus type 2, left eye blindness, hypertension, BPH and ESRD on hemodialysis following Dr. Waterman, sent from hemodialysis clinic for soft blood pressure, and unable to tolerate hemodialysis. Patient reported that he underwent 2-hour of hemodialysis over there, and when blood pressure was soft, was sent to the ED. Currently, he denied any lightheadedness, chest pain, SOB, abdominal pain, any changes in bowel or bladder habit. He admitted bilateral lower limb edema. During our evaluation, his vitals were stable with blood pressure 115/77, saturating 94% on 4 L NC. CBC fairly stable, CMP revealed sodium 136, potassium 4.9, chloride 97, BUN 45, creatinine 3.7, EGFR 15, A1c 7.0 and magnesium 2.8. Bilateral foot x-ray revealed no fabrizio cortical bone destruction. CXR significant for mild chronic heart failure pattern. PMH: As mentioned above Social history: Denied any smoking, alcohol or illicit drug use Medications: To be reconciled Allergies: No known allergies Nephrology consultation was done for further management of ESRD and hemodialysis. 11/27/2024: The patient was interviewed and examined at the bedside this morning. He reported doing well. He denied any lightheadedness, chest pain or SOB, any abdominal pain, fever or chills, and nausea or vomiting. He admitted lower limb edema. Vitals were fairly stable saturating 94% on 4 L NC. Physical examination was significant for bibasilar crackles, 3+ peripheral lower limb edema. CBC fairly stable, CMP with potassium 4.9, BUN 45, creatinine 3.7 and GFR 15 with A1c 7.0 and magnesium 2.8. Nephrology team will likely proceed with hemodialysis tomorrow if his blood pressure is stable. Exam Vital Signs Temp Pulse Resp BP Pulse Ox O2 Del Method O2 Flow Rate 97.4 F 94 19 115/77 94 L Nasal Cannula 4 11/27/24 12:00 11/27/24 12:36 11/27/24 12:00 11/27/24 12:36 11/27/24 12:00 11/27/24 12:00 11/27/24 12:00 Narrative Exam General: No acute distress, Alert and Oriented x 3 HEENT: Left eye haziness/cataract. He is blind in his left eye. He wears sunglasses, Moist mucous membranes, oropharynx clear, Neck: Supple, No masses, No JVD CVS: S1S2 Regular rate and rhythm, No murmurs, rubs or gallops Lungs: Clear to auscultation with no accessory use, no wheeze no rhonchi Abd: Soft, NT/ND, +BS, no organomegaly Ext: 3+ bilateral lower limb edema, Right dialysis line in place appears intact without erythema or evidence of infection. Pacemaker is noted on the left chest. Bilateral lower foot diabetic ulcers with areas of wet gangrene without purulent discharge Skin: No rash Psych: Appropriate mood and affect Objective Labs 11/29/24 05:24 11/29/24 05:24 Labs: Laboratory Results - last 24 hr 11/26/24 11/27/24 11/27/24 13:50 04:44 07:10 WBC 8.8 RBC 3.90 L Hgb 12.3 L Hct 38.4 L MCV 99 MCH 31.5 MCHC 32.0 RDW Std Deviation 51.9 H Plt Count 147 Neut % (Auto) 80 Lymph % (Auto) 9 L [place] % (Auto) 9 Eos % (Auto) 1 Baso % (Auto) 0 Neut # (Auto) 7.1 Lymph # (Auto) 0.8 L [place] # (Auto) 0.8 Eos # (Auto) 0.1 Baso # (Auto) 0.0 Immature Gran # (Auto) 0.03 H Absolute Nucleated RBC 0.00 Immature Gran % 0 Nucleated RBC % 0 Sodium 136 Potassium 4.9 D Chloride 97 L Carbon Dioxide 23.7 Anion Gap 15 BUN 45 H Creatinine 3.7 H D Estim Creat Clear Calc 13.1 L eGFR 15 L BUN/Creatinine Ratio [address] Glu mg/dL 154 H Hemoglobin A1c 7.0 H Calculated Osmolality 287 Calcium 9.2 Phosphorus 3.8 Magnesium 2.8 H B-Natriuretic Peptide > 3280 H* Random Vancomycin 11.4 Hepatitis A IgM Ab Non Reactive Hep Bs Antigen Non Reactive Hep Bs Antibody NonReact(Not Immune) L Hep B Core IgM Ab Non Reactive Hepatitis C Antibody Non Reactive Quality Measures Quality Measures VTE prophylaxis Advance care planning discussed with:: patient Assessment & Plan Assessment Current Active Medications: Generic Name Dose Route Start Last Admin Trade Name Freq PRN Reason Stop Dose Admin Dextrose 25 ml 02/06/25 18:42 Dextrose 50%-Water Inj 50 Ml Syringe IV 12/26/24 18:41 Q15MIN PRN BG 50-70 responsive npo pt Dextrose 50 ml 11/26/24 18:42 Dextrose 50%-Water Inj 50 Ml Syringe IV 12/26/24 18:41 Q15MIN PRN BG <50 OR BG <70 & pt unresponsive Glucagon 1 mg 11/26/24 18:42 Glucagon Inj 1 Mg Vial IM Q15MIN PRN BG <70, and no IV access Heparin Sodium (Porcine) 3,600 unit 11/26/24 20:57 Heparin Sod Inj 1000 Unit/Ml Vial 10 Ml INDWELLCAT 12/10/24 20:56 X1 PRN DIALYSIS Albumin Human 25 gm in 100 mls @ 100 mls/hr 11/26/24 18:43 11/26/24 21:36 Albuminar-25 Ivpb IV Infused PRN PRN Infusion DIALYSIS Piperacillin/Tazobactam/Dextrose 3.375 gm in 50 mls @ 12.5 mls/hr 11/27/24 09:00 11/27/24 09:40 Zosyn IV 12/04/24 08:59 12.5 mls/hr Q12HR JACKIE Administration Insulin Human Lispro 0 unit 11/26/24 21:00 11/27/24 12:21 Insulin Lispro (Admelog) 1 Unit/0.01 Ml Unit SC 12/26/24 20:59 1 unit ACHS JACKIE Administration Protocol Midodrine 10 mg 11/27/24 08:45 11/27/24 12:36 Midodrine 5 Mg Tablet PO 12/27/24 08:44 10 mg TID JACKIE Administration Morphine Sulfate 1 mg 11/26/24 18:42 Morphine Sulf Inj 10 Mg/Ml Vial IVP 12/01/24 18:41 Q6H PRN PAIN SCALE 7-10 (Severe Ondansetron HCl 4 mg 11/26/24 18:42 Ondansetron Inj 2 Mg/Ml Inj 2 Ml IV 12/26/24 18:41 Q6H PRN NAUSEA OR VOMITING Protocol Oxycodone/Acetaminophen 1 tab 11/26/24 18:42 Oxycodone/Apap 5/325 Tablet PO 12/01/24 18:41 Q6H PRN PAIN SCALE 4-6 (Moderate Pharmacy Consult 1 each 11/27/24 07:32 Vancomycin Pharmacy To Dose 1 Each Each IV 12/26/24 18:44 QDAY PRN PROTOCOL Plan The patient is a 84-year-old male with significant past medical history significant for diabetes mellitus type 2, left eye blindness, hypertension, BPH and ESRD on hemodialysis following Dr. Waterman, sent from hemodialysis clinic for soft blood pressure, and unable to tolerate hemodialysis. Nephrology consultation was done for further management of ESRD and hemodialysis. #Acute hypotension, resolved #Cardiogenic shock, resolved Likely secondary to hemodialysis with removal of fluid Patient was undergoing hemodialysis, and was found to have hypotension, was sent to ED from hemodialysis clinic -During evaluation in the ED, blood pressure was soft but stable -Continue to monitor -Hold any antihypertensive -Consider adding midodrine 10 mg 3 times daily Next dialysis scheduled for tomorrow #Hyperkalemia, resolved Secondary to ESRD -Kayexalate 15 g p.o. x 1 -Monitor potassium level in the a.m. -Hemodialysis if blood pressure is stable and tolerates #Mild hypervolemic hypoosmolar hyponatremia, stable Secondary to volume overload in the setting of ESRD -Hemodialysis if blood pressure stabilizes to remove extra fluid -Continue to monitor daily sodium level #ESRD on hemodialysis TTS Secondary to diabetic and hypertensive nephropathy -Hemodialysis if blood pressure stabilizes by tomorrow #Acute exacerbation of HFrEF, LVEF 10 to 15% #Diabetic foot wounds #Wet gangrene of bilateral feet #Persistent dry cough #Insulin-dependent diabetes mellitus, type II #Second-degree Mobitz type II AV block status post pacemaker -Management deferred to primary hospitalist team. Thank you for your opportunity to participate nephrology team in this patient care. The patient's management plan was discussed with my attending physician MD Hay Mendes MD, PGY2 Attending Provider Attestation/Addendum Patient seen and examined with resident physician Dr. Lezama. Note reviewed, agree with findings and recommendations. Dialysis ordered for a.m. Spoke to Dr. Mckeon-ejection fraction 10 to 15%. Patient has severe cardiorenal syndrome. Significant anasarca noted. Unable to pull out fluid due to hypotension. Yesterday I tried dialysis-could not complete due to low blood pressure. Will reevaluate tomorrow Spoke to Dr. Rizvi. Continue with midodrine.
--- NOTE | 2024-11-27 15:12 | ESPR_ITS ---
Documentation for date of: 11/27/24 Subjective Subjective Interval history: Patient seen at bedside. No acute overnight events. Patient had dialysis done yesterday with net removal of 1.2 L. Today, he has no complaints. Patient was seen by surgeon Dr. Cortez, recommends no surgical intervention for now. Will continue IV antibiotics for now. Cardiology consulted, appreciate recommendations. 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 Left eye blindness CARDIO: No chest pain on palpation. Heart RRR, no obvious murmurs PULM: No noted coughing/dyspnea. Crackles heard bilaterally GI: Abdomen soft, nondistended, no pain on palpation. BSx4 URO/CONTROL SYSTEMS DEVELOPER:: No further abnormalities noted. SKIN/MSK/EXT: Bilateral feet wrapped in clean and dry dressing Objective Labs 11/28/24 05:37 11/28/24 05:37 Labs: Laboratory Results - last 24 hr 11/27/24 11/27/24 04:44 07:10 WBC 8.8 RBC 3.90 L Hgb 12.3 L Hct 38.4 L MCV 99 MCH 31.5 MCHC 32.0 RDW Std Deviation 51.9 H Plt Count 147 Neut % (Auto) 80 Lymph % (Auto) 9 L [place] % (Auto) 9 Eos % (Auto) 1 Baso % (Auto) 0 Neut # (Auto) 7.1 Lymph # (Auto) 0.8 L [place] # (Auto) 0.8 Eos # (Auto) 0.1 Baso # (Auto) 0.0 Immature Gran # (Auto) 0.03 H Absolute Nucleated RBC 0.00 Immature Gran % 0 Nucleated RBC % 0 Sodium 136 Potassium 4.9 D Chloride 97 L Carbon Dioxide 23.7 Anion Gap 15 BUN 45 H Creatinine 3.7 H D Estim Creat Clear Calc 13.1 L eGFR 15 L BUN/Creatinine Ratio 12 [address]ucose [address] Glu mg/dL 154 H Hemoglobin A1c 7.0 H Calculated Osmolality 287 Calcium 9.2 Phosphorus 3.8 Magnesium 2.8 H Random Vancomycin 11.4 Hepatitis A IgM Ab Non Reactive Hep Bs Antigen Non Reactive Hep Bs Antibody NonReact(Not Immune) L Hep B Core IgM Ab Non Reactive Hepatitis C Antibody Non Reactive Quality Measures Quality Measures VTE prophylaxis Advance care planning discussed with:: patient and spouse Assessment & Plan Assessment Current Active Medications: Generic Name Dose Route Start Last Admin Trade Name Freq PRN Reason Stop Dose Admin Dextrose 25 ml 11/26/24 18:42 Dextrose 50%-Water Inj 50 Ml Syringe IV 12/26/24 18:41 Q15MIN PRN BG 50-70 responsive npo pt Dextrose 50 ml 11/26/24 18:42 Dextrose 50%-Water Inj 50 Ml Syringe IV 12/26/24 18:41 Q15MIN PRN BG <50 OR BG <70 & pt unresponsive Glucagon 1 mg 11/26/24 18:42 Glucagon Inj 1 Mg Vial IM Q15MIN PRN BG <70, and no IV access Heparin Sodium (Porcine) 3,600 unit 11/26/24 20:57 Heparin Sod Inj 1000 Unit/Ml Vial 10 Ml INDWELLCAT 12/10/24 20:56 X1 PRN DIALYSIS Albumin Human 25 gm in 100 mls @ 100 mls/hr 11/26/24 18:43 11/26/24 21:36 Albuminar-25 Ivpb IV Infused PRN PRN Infusion DIALYSIS Piperacillin/Tazobactam/Dextrose 3.375 gm in 50 mls @ 12.5 mls/hr 11/27/24 09:00 11/27/24 09:40 Zosyn IV 12/04/24 08:59 12.5 mls/hr Q12HR JACKIE Administration Insulin Human Lispro 0 unit 11/26/24 21:00 11/27/24 12:21 Insulin Lispro (Admelog) 1 Unit/0.01 Ml Unit SC 12/26/24 20:59 1 unit ACHS JACKIE Administration Protocol Midodrine 10 mg 11/27/24 08:45 11/27/24 12:36 Midodrine 5 Mg Tablet PO 12/27/24 08:44 10 mg TID JACKIE Administration Morphine Sulfate 1 mg 11/26/24 18:42 Morphine Sulf Inj 10 Mg/Ml Vial IVP 12/01/24 18:41 Q6H PRN PAIN SCALE 7-10 (Severe Ondansetron HCl 4 mg 11/26/24 18:42 Ondansetron Inj 2 Mg/Ml Inj 2 Ml IV 12/26/24 18:41 Q6H PRN NAUSEA OR VOMITING Protocol Oxycodone/Acetaminophen 1 tab 11/26/24 18:42 Oxycodone/Apap 5/325 Tablet PO 12/01/24 18:41 Q6H PRN PAIN SCALE 4-6 (Moderate Pharmacy Consult 1 each 11/27/24 07:32 Vancomycin Pharmacy To Dose 1 Each Each IV 12/26/24 18:44 QDAY PRN PROTOCOL Plan Summary: The patient is an 84-year-old male with history of ESRD on hemodialysis who presented after being found hypotensive during the dialysis session. He also reported persistent cough. He was found to have volume overload and worsening diabetic foot wounds #Acute hypotension-resolved #History of ?HFrEF #s/p pacemaker The patient presents to the ED after he was said to have been hypotensive during dialysis session. Blood pressure on admission-82/57. Upon examination, blood pressure had resolved and was now in the 120s. This is most likely in the setting of hemodialysis and is not uncommon. Patient is said to have ejection fraction of 10% by offset proof press operator Dr. Styles however retrieve echocardiogram report. Possibly has an ICD Echocardiogram from 12/2023 shows ejection fraction of 60-65% Plan: -Continue to monitor vitals -Cardiology consulted, appreciate recommendations #ESRD on hemodialysis on T/T/S Followed by Dr. Waterman Plan: Consult Dr. Waterman for hemodialysis Renal diet Monitor BMP Management of hyperkalemia as above Dose medications based on GFR #Diabetic foot wounds #Wet gangrene of bilateral feet In the setting of long standing diabetes mellitus on insulin Foot x-ray did not show any foot destruction however osteomyelitis cannot be ruled out Patient was evaluated by surgeon Dr. Cortez today, recommends no surgical intervention for now. Will continue on IV antibiotics. Plan: -Continue Wound care and IV antibiotics -Optimize blood glucose management #Hyperkalemia-resolved In the setting of incomplete dialysis in an ESRD patient Plan: Continue scheduled dialysis and monitor CMP #Hyponatremia-resolved Likely hypervolemic due to ESRD Plan: Monitor BMP #Hx of diabetes Complicated by diabetic foot ulcers Patient is unsure about how much insulin he takes at home. A1c- 7 Plan: -ISS -Blood glucose check AC -Hypoglycemic protocols in [facility] maintenance: Dispo: Tele Diet: Renal DVT: SC Heparin PT: Not ordered Code: DNR Case was discussed with Dr Puga PGY-2 and attending physician, Dr Belkys Hernandez MD PGY-1 Disclaimer: This note was dictated by speech recognition. Minor errors in supervisor jewelry department may be present due to voice recognition software. Attending Provider Attestation/Addendum I reviewed labs, imaging, EKG, home medications and prior available records. Face to face evaluation was performed by me. I have personally examined the patient and discussed assessment and plan with the IM team. I reviewed the resident note and agree with the plan with exceptions as below. Acute hypotension Diabetic foot ulcer, bilateral feet Bilateral foot wounds ESRD on hemodialysis Cardiomyopathy High-grade AV block status post pacemaker Goals of care discussion/counseling Patient became hypotensive again during hemodialysis session. Discussed with nephrology: Consult cardiology given the reports of severely reduced ejection fraction Consulted surgery: Recommended no surgical intervention. Continue IV vancomycin/Zosyn. Continue wound care Consulted cardiology regarding the reports of severely reduced EF Monitor BMP. Dose medications based on GFR Patient confirmed that he is DNR/DNI
[2024-11-27] MEDS: ONDANSETRON INJ 2 MG/ML INJ 2 ML 4 MG IV (17:56)
[2024-11-27] MEDS: HEPARIN SOD INJ 5000 UNIT/ML VIAL SC (21:41)
[2024-11-28] VITALS (28 sets, daily range): BP systolic 97–132; BP diastolic 49–81; PULSE 68–93; RESP 13–83; TEMP 36.4–36.8; O2SAT 94–99; BMI 21.9
[2024-11-28 03:06] LABS: Collection Type, Urine Clean Catch
[2024-11-28 03:25] LABS: Bacteria,Urine 1+; Bilirubin,Urine Negative (Negative); Blood,Urine Trace (Negative); Clarity,Urine Turbid (Clear/Hazy); Color,Urine Drk-Yellow (Lt Yel-Yel); Culture Indicated,Urine Contaminated; Glucose, Urine Negative (Negative); Ketones,Urine 1+ (Negative); Leukocyte Esterase,Urine Positive (Negative); Nitrite,Urine Negative (Negative); Protein,Urine 1+ (Neg - Trace); RBC,Urine 6 /hpf (0-3); Specific Gravity,Urine 1.025 (1.001-1.035); Squamous Epithelial Cell,Urine 14 /hpf (0-5); WBC,Urine 21 /hpf (0-5)
[2024-11-28 06:05] LABS: Basophils % (Auto) 0 % (0-2.5); Eosinophils % (Auto) 0 % (0-10); Hematocrit 34.9 % (41.0-53.0); Hemoglobin 11.5 g/dL (13.5-16.0); Immature Granulocytes % (Auto) 1 % (0-0); Immature Granulocytes Auto 0.04 Thou/mm3 (0.00-0.00); Lymphocytes # (Auto) 0.5 Thou/mm3 (1.0-4.8); Lymphocytes % (Auto) 6 % (10-50); Mean Corpuscular Hemoglobin 32.3 pg (25.0-35.0); Mean Corpuscular Volume 98 fL (80-100); Monocytes # (Auto) 0.8 Thou/mm3 (0.0-0.8); Monocytes % (Auto) 9 % (0-12); Neutrophils # (Auto) 7.3 Thou/mm3 (1.8-7.7); Neutrophils % (Auto) 84 % (37-80); Nucleated Red Blood Cell % 0 /100 WBC (0); Platelet Count 137 Thou/mm3 (140-440); RDW Standard Deviation 51.9 fL (35.1-43.9); Red Blood Count 3.56 Miln/mm3 (4.50-5.90); White Blood Count 8.7 Thou/mm3 (3.8-10.6)
[2024-11-28] MEDS: MIDODRINE 5 MG TABLET 10 MG PO ×3 (06:15→21:49)
[2024-11-28 06:59] LABS: Anion Gap 11 (7-16); BUN/Creatinine Ratio 12 Ratio (12-20); Blood Urea Nitrogen 55 mg/dL (9-23); Calcium 9.3 mg/dL (8.3-10.6); Carbon Dioxide 27.2 mMol/L (20.0-31.0); Chloride 96 mMol/L (98-107); Creatinine (Component) 4.6 mg/dL (0.6-1.3); Estimated Creatinine Clearance 0.8 mL/min (>60); Glucose 138 mg/dL (74-106); Osmolality,Calculated 285 (275-295); Potassium 5.5 mMol/L (3.4-5.1); Sodium 134 mMol/L (136-145); Vancomycin,Random 13.5 mcg/mL; eGFR 12 See Note
[2024-11-28] MEDS: ALBUMIN HUMAN 25% IVPB 25 GM/100 ML BTL IV (10:15)
--- NOTE | 2024-11-28 11:13 | PC.NURSE ---
bp trending down pt denies all s/s of hypotension uf goal lowered to 1.8L as tolerated will cont. to monitor
--- NOTE | 2024-11-28 11:39 | PD.RESPRO ---
Documentation for date of: 11/28/24 Subjective Subjective Interval history: History of present illness: The patient is a 84-year-old male with significant past medical history significant for diabetes mellitus type 2, left eye blindness, hypertension, BPH and ESRD on hemodialysis following Dr. Waterman, sent from hemodialysis clinic for soft blood pressure, and unable to tolerate hemodialysis. Patient reported that he underwent 2-hour of hemodialysis over there, and when blood pressure was soft, was sent to the ED. Currently, he denied any lightheadedness, chest pain, SOB, abdominal pain, any changes in bowel or bladder habit. He admitted bilateral lower limb edema. During our evaluation, his vitals were stable with blood pressure 115/77, saturating 94% on 4 L NC. CBC fairly stable, CMP revealed sodium 136, potassium 4.9, chloride 97, BUN 45, creatinine 3.7, EGFR 15, A1c 7.0 and magnesium 2.8. Bilateral foot x-ray revealed no fabrizio cortical bone destruction. CXR significant for mild chronic heart failure pattern. PMH: As mentioned above Social history: Denied any smoking, alcohol or illicit drug use Medications: To be reconciled Allergies: No known allergies Nephrology consultation was done for further management of ESRD and hemodialysis. 11/27/2024: The patient was interviewed and examined at the bedside this morning. He reported doing well. He denied any lightheadedness, chest pain or SOB, any abdominal pain, fever or chills, and nausea or vomiting. He admitted lower limb edema. Vitals were fairly stable saturating 94% on 4 L NC. Physical examination was significant for bibasilar crackles, 3+ peripheral lower limb edema. CBC fairly stable, CMP with potassium 4.9, BUN 45, creatinine 3.7 and GFR 15 with A1c 7.0 and magnesium 2.8. Nephrology team will likely proceed with hemodialysis tomorrow if his blood pressure is stable. 11/28/2024: The patient was interviewed and examined at the hemodialysis unit this morning. He reported doing much better. He was saturating 97% on 3 L NC. Other vitals were stable. Physical exam was significant for mild bibasilar crackles, 3+ peripheral lower limb pitting edema. CBC at baseline, CMP revealed potassium of 5.5, BUN 55, creatinine 4.6, GFR 12. UA revealed dark yellow urine, protein 1+ RBC 6, WBC 21, and urine bacteria. The patient was undergoing hemodialysis with a goal ultrafiltration of 2 to 3 L as tolerated. Exam Vital Signs Temp Pulse Resp BP Pulse Ox O2 Del Method O2 Flow Rate 98.0 F 86 18 105/62 97 Nasal Cannula 3 11/28/24 08:33 11/28/24 11:30 11/28/24 08:33 11/28/24 11:30 11/28/24 08:33 11/28/24 08:00 11/28/24 08:33 Narrative Exam General: No acute distress, Alert and Oriented x 3 HEENT: Left eye haziness/cataract. He is blind in his left eye. He wears sunglasses, Moist mucous membranes, oropharynx clear, Neck: Supple, No masses, No JVD CVS: S1S2 Regular rate and rhythm, No murmurs, rubs or gallops Lungs: Clear to auscultation with no accessory use, no wheeze no rhonchi Abd: Soft, NT/ND, +BS, no organomegaly Ext: 3+ bilateral lower limb edema, Right dialysis line in place appears intact without erythema or evidence of infection. Pacemaker is noted on the left chest. Bilateral lower foot diabetic ulcers with areas of wet gangrene without purulent discharge Skin: No rash Psych: Appropriate mood and affect Objective Labs 11/29/24 05:24 11/29/24 05:24 Labs: Laboratory Results - last 24 hr 11/28/24 11/28/24 01:50 05:37 WBC 8.7 RBC 3.56 L Hgb 11.5 L Hct 34.9 L MCV 98 MCH 32.3 MCHC 33.0 RDW Std Deviation 51.9 H Plt Count 137 L Neut % (Auto) 84 H Lymph % (Auto) 6 L [place] % (Auto) 9 Eos % (Auto) 0 Baso % (Auto) 0 Neut # (Auto) 7.3 Lymph # (Auto) 0.5 L [place] # (Auto) 0.8 Eos # (Auto) 0.0 Baso # (Auto) 0.0 Immature Gran # (Auto) 0.04 H Absolute Nucleated RBC 0.00 Immature Gran % 1 H Nucleated RBC % 0 Sodium 134 L Potassium 5.5 H D Chloride 96 L Carbon Dioxide 27.2 Anion Gap 11 BUN 55 H Creatinine 4.6 H* D Estim Creat Clear Calc 0.8 L eGFR 12 L* BUN/Creatinine Ratio 12 Glucose 138 H Calculated Osmolality 285 Calcium 9.3 Ur Collection Type Clean Catch Urine Color Drk-Yellow A Urine Clarity Turbid A Urine pH 5.0 Ur Specific [place] 1.025 Urine Protein 1+ A Urine Glucose (UA) Negative Urine Ketones 1+ A Urine Blood Trace Urine Nitrite Negative Urine Bilirubin Negative Urine Urobilinogen (Auto) 6.0 Ur Leukocyte Esterase Positive Urine RBC 6 H Urine WBC 21 H Ur Squamous Epith Cells 14 H Urine Bacteria 1+ A Ur Culture Indicated? Contaminated Random Vancomycin 13.5 Quality Measures Quality Measures VTE prophylaxis Advance care planning discussed with:: patient Assessment & Plan Assessment Current Active Medications: Generic Name Dose Route Start Last Admin Trade Name Freq PRN Reason Stop Dose Admin Dextrose 25 ml 11/26/24 18:42 Dextrose 50%-Water Inj 50 Ml Syringe IV 12/26/24 18:41 Q15MIN PRN BG 50-70 responsive npo pt Dextrose 50 ml 11/26/24 18:42 Dextrose 50%-Water Inj 50 Ml Syringe IV 12/26/24 18:41 Q15MIN PRN BG <50 OR BG <70 & pt unresponsive Doxycycline Hyclate 100 mg 11/28/24 21:00 Doxycycline 100 Mg Tablet PO 12/05/24 20:59 BID JACKIE Glucagon 1 mg 11/26/24 18:42 Glucagon Inj 1 Mg Vial IM Q15MIN PRN BG <70, and no IV access Heparin Sodium (Porcine) 3,600 unit 11/26/24 20:57 Heparin Sod Inj 1000 Unit/Ml Vial 10 Ml INDWELLCAT 12/10/24 20:56 X1 PRN DIALYSIS Heparin Sodium (Porcine) 5,000 unit 11/27/24 21:00 11/27/24 21:41 Heparin Sod Inj 5000 Unit/Ml Vial SC 12/11/24 20:59 5,000 unit Q12HR JACKIE Administration Albumin Human 25 gm in 100 mls @ 100 mls/hr 11/26/24 18:43 11/28/24 10:15 Albuminar-25 Ivpb IV 100 mls/hr PRN PRN Administration DIALYSIS Insulin Human Lispro 0 unit 11/26/24 21:00 11/28/24 00:00 Insulin Lispro (Admelog) 1 Unit/0.01 Ml Unit SC 12/26/24 20:59 Not Given ACHS [facility] Protocol Midodrine 10 mg 11/27/24 08:45 11/28/24 06:15 Midodrine 5 Mg Tablet PO 12/27/24 08:44 10 mg TID JACKIE Administration Morphine Sulfate 1 mg 11/26/24 18:42 Morphine Sulf Inj 10 Mg/Ml Vial IVP 12/01/24 18:41 Q6H PRN PAIN SCALE 7-10 (Severe Ondansetron HCl 4 mg 11/26/24 18:42 11/27/24 17:56 Ondansetron Inj 2 Mg/Ml Inj 2 Ml IV 12/26/24 18:41 4 mg Q6H PRN Administration NAUSEA OR VOMITING Protocol Oxycodone/Acetaminophen 1 tab 11/26/24 18:42 Oxycodone/Apap 5/325 Tablet PO 12/01/24 18:41 Q6H PRN PAIN SCALE 4-6 (Moderate Plan The patient is a 84-year-old male with significant past medical history significant for diabetes mellitus type 2, left eye blindness, hypertension, BPH and ESRD on hemodialysis following Dr. Waterman, sent from hemodialysis clinic for soft blood pressure, and unable to tolerate hemodialysis. Nephrology consultation was done for further management of ESRD and hemodialysis. #Acute hypotension, resolved #Cardiogenic shock, resolved Likely secondary to hemodialysis with removal of fluid Patient was undergoing hemodialysis, and was found to have hypotension, was sent to ED from hemodialysis clinic -During evaluation in the ED, blood pressure was soft but stable -Continue to monitor -Hold any antihypertensive -Consider adding midodrine 10 mg 3 times daily #Hyperkalemia Secondary to ESRD This morning potassium was 5.5 -Monitor potassium level in the a.m. -Patient undergoing hemodialysis expected to improve on potassium level #Mild hypervolemic hypoosmolar hyponatremia, stable Secondary to volume overload in the setting of ESRD -Hemodialysis if blood pressure stabilizes to remove extra fluid -Continue to monitor daily sodium level #ESRD on hemodialysis TTS Secondary to diabetic and hypertensive nephropathy -Sent underwent partial session of hemodialysis this admission today, and we will consider 1 extra hemodialysis session tomorrow morning if he is able to tolerate. #Acute exacerbation of HFrEF, LVEF 10 to 15% #Diabetic foot wounds #Wet gangrene of bilateral feet #Persistent dry cough #Insulin-dependent diabetes mellitus, type II #Second-degree Mobitz type II AV block status post pacemaker -Management deferred to primary hospitalist team. Thank you for your opportunity to participate nephrology team in this patient care. The patient's management plan was discussed with my attending physician MD Hay Mendes MD, PGY2 Attending Provider Attestation/Addendum Patient seen and examined with resident physician Dr. Lezama. Note reviewed, agree with findings and recommendations. Dialysis ordered for a.m. Spoke to Dr. Mckeon-ejection fraction 10 to 15%. Patient has severe cardiorenal syndrome. Significant anasarca noted. Unable to pull out fluid due to hypotension. Yesterday I tried dialysis-could not complete due to low blood pressure. Will reevaluate tomorrow 11/28/2024 patient currently seen on dialysis. Tolerating dialysis without any problems. Blood pressure acceptable Hemodialysis for 3 hours, 2K, ultrafiltration 2.4 L, Epogen 6000, no heparin ordered. Plan of care discussed with the dialysis nurse. Please see dialysis flowsheet for further details. Spoke to Dr. Rizvi. Continue with midodrine. Long-term prognosis poor. Patient currently currently DNR. Might need to talk about goals of care with family.
--- NOTE | 2024-11-28 11:44 | PC.NURSE ---
Tx terminated 10 min early d/t increased [employer] despite all interventions. Pt remains asymptomatic, all blood returned.
[2024-11-28] MEDS: HEPARIN SOD INJ 1000 UNIT/ML VIAL 10 ML 3600 UNIT INDWELLCAT (12:12)
--- NOTE | 2024-11-28 12:39 | PD.RESPRO ---
Documentation for date of: 11/28/24 Subjective Subjective Interval history: Patient is seen in dialysis session this morning. No overnight events. Patient complains of some pain in his foot but is otherwise doing all right. Blood pressure doing okay. Patient has received midodrine and receiving albumin on this dialysis session. Evaluated by cardiology yesterday, recommends to continue midodrine 10 mg 3 times daily. Anticipate discharge within the next 24 hours if patient tolerates dialysis. Will continue on IV Zosyn in the interim. Exam Vital Signs Temp Pulse Resp BP Pulse Ox O2 Del Method O2 Flow Rate 97.5 F 84 18 105/60 99 Nasal Cannula 2 11/28/24 12:04 11/28/24 12:04 11/28/24 12:04 11/28/24 11:39 11/28/24 12:04 11/28/24 08:00 11/28/24 12:04 Narrative Exam GENERAL: AAOX3 NEURO: ENTRY LEVEL grossly intact, moves extremities x4 HEENT: Moist mucosa. Left eye blindness CARDIO: No chest pain on palpation. Heart RRR, no obvious murmurs PULM: No noted coughing/dyspnea. Crackles heard bilaterally on auscultation GI: Abdomen soft, nondistended, no pain on palpation. BSx4 URO/[employer]BASS[employer]OR:: No further abnormalities noted. SKIN/MSK/EXT: Bilateral pitting edema. Pedal pulses present. Clean and dry dressing on bilateral feet. Objective Labs 11/29/24 05:24 11/29/24 05:24 Labs: Laboratory Results - last 24 hr 11/28/24 11/28/24 01:50 05:37 WBC 8.7 RBC 3.56 L Hgb 11.5 L Hct 34.9 L MCV 98 MCH 32.3 MCHC 33.0 RDW Std Deviation 51.9 H Plt Count 137 L Neut % (Auto) 84 H Lymph % (Auto) 6 L [place] % (Auto) 9 Eos % (Auto) 0 Baso % (Auto) 0 Neut # (Auto) 7.3 Lymph # (Auto) 0.5 L [place] # (Auto) 0.8 Eos # (Auto) 0.0 Baso # (Auto) 0.0 Immature Gran # (Auto) 0.04 H Absolute Nucleated RBC 0.00 Immature Gran % 1 H Nucleated RBC % 0 Sodium 134 L Potassium 5.5 H D Chloride 96 L Carbon Dioxide 27.2 Anion Gap 11 BUN 55 H Creatinine 4.6 H* D Estim Creat Clear Calc 0.8 L eGFR 12 L* BUN/Creatinine Ratio 12 Glucose 138 H Calculated Osmolality 285 Calcium 9.3 Ur Collection Type Clean Catch Urine Color Drk-Yellow A Urine Clarity Turbid A Urine pH 5.0 Ur Specific [place] 1.025 Urine Protein 1+ A Urine Glucose (UA) Negative Urine Ketones 1+ A Urine Blood Trace Urine Nitrite Negative Urine Bilirubin Negative Urine Urobilinogen (Auto) 6.0 Ur Leukocyte Esterase Positive Urine RBC 6 H Urine WBC 21 H Ur Squamous Epith Cells 14 H Urine Bacteria 1+ A Ur Culture Indicated? Contaminated Random Vancomycin 13.5 Quality Measures Quality Measures VTE prophylaxis Advance care planning discussed with:: patient and spouse Assessment & Plan Assessment Current Active Medications: Generic Name Dose Route Start Last Admin Trade Name Freq PRN Reason Stop Dose Admin Dextrose 25 ml 11/26/24 18:42 Dextrose 50%-Water Inj 50 Ml Syringe IV 12/26/24 18:41 Q15MIN PRN BG 50-70 responsive npo pt Dextrose 50 ml 11/26/24 18:42 Dextrose 50%-Water Inj 50 Ml Syringe IV 12/26/24 18:41 Q15MIN PRN BG <50 OR BG <70 & pt unresponsive Doxycycline Hyclate 100 mg 11/28/24 21:00 Doxycycline 100 Mg Tablet PO 12/05/24 20:59 BID JACKIE Glucagon 1 mg 11/26/24 18:42 Glucagon Inj 1 Mg Vial IM Q15MIN PRN BG <70, and no IV access Heparin Sodium (Porcine) 3,600 unit 11/26/24 20:57 11/28/24 12:12 Heparin Sod Inj 1000 Unit/Ml Vial 10 Ml INDWELLCAT 12/10/24 20:56 3,600 unit X1 PRN Administration DIALYSIS Heparin Sodium (Porcine) 5,000 unit 11/27/24 21:00 11/27/24 21:41 Heparin Sod Inj 5000 Unit/Ml Vial SC 12/11/24 20:59 5,000 unit Q12HR JACKIE Administration Albumin Human 25 gm in 100 mls @ 100 mls/hr 11/26/24 18:43 11/28/24 10:15 Albuminar-25 Ivpb IV 100 mls/hr PRN PRN Administration DIALYSIS Insulin Human Lispro 0 unit 11/26/24 21:00 11/28/24 11:55 Insulin Lispro (Admelog) 1 Unit/0.01 Ml Unit SC 12/26/24 20:59 Not Given ACHS [facility] Protocol Midodrine 10 mg 11/27/24 08:45 11/28/24 06:15 Midodrine 5 Mg Tablet PO 12/27/24 08:44 10 mg TID JACKIE Administration Morphine Sulfate 1 mg 11/26/24 18:42 Morphine Sulf Inj 10 Mg/Ml Vial IVP 12/01/24 18:41 Q6H PRN PAIN SCALE 7-10 (Severe Ondansetron HCl 4 mg 11/26/24 18:42 11/27/24 17:56 Ondansetron Inj 2 Mg/Ml Inj 2 Ml IV 12/26/24 18:41 4 mg Q6H PRN Administration NAUSEA OR VOMITING Protocol Oxycodone/Acetaminophen 1 tab 11/26/24 18:42 Oxycodone/Apap 5/325 Tablet PO 12/01/24 18:41 Q6H PRN PAIN SCALE 4-6 (Moderate Plan Summary: The patient is an 84-year-old male with history of ESRD on hemodialysis who presented after being found hypotensive during the dialysis session. He also reported persistent cough. He was found to have volume overload and worsening diabetic foot wounds #Acute hypotension-resolved #History of ?HFrEF #s/p pacemaker The patient presents to the ED after he was said to have been hypotensive during dialysis session. Blood pressure on admission-82/57. Upon examination, blood pressure had resolved and was now in the 120s. This is most likely in the setting of hemodialysis and is not uncommon. Patient is said to have ejection fraction of 10% by employment law attorney Dr. Styles however retrieve echocardiogram report. Possibly has an ICD Echocardiogram from 12/2023 shows ejection fraction of 60-65% 11/28/2023-blood pressure today currently normal-124/75. Reviewed by cardiology, recommends continue patient on midodrine 10 mg 3 times daily and hold all antihypertensives. Plan: -Midodrine 10 mg 3 times daily -Continue to monitor vitals -Cardiology consulted, appreciate recommendations #ESRD on hemodialysis on T// Followed by Dr. Waterman. Had a session of hemodialysis on and is currently have another session today. So far, patient is tolerating and is also on albumin. Plan: -Dialysis as scheduled -Renal diet -Monitor BMP -Renally dose medications #Diabetic foot wounds #Wet gangrene of bilateral feet In the setting of long standing diabetes mellitus on insulin Foot x-ray did not show any foot destruction however osteomyelitis cannot be ruled out Patient was evaluated by surgeon Dr. Cortez today, recommends no surgical intervention for now. Will continue on IV antibiotics. Plan: -Continue Wound care and IV antibiotics -Optimize blood glucose management #Hyperkalemia- Potassium today-5.5. Patient is scheduled for hemodialysis session today Plan: Continue scheduled dialysis and monitor CMP #Hyponatremia-resolved Likely hypervolemic due to ESRD Plan: Monitor BMP #Hx of diabetes Complicated by diabetic foot ulcers Patient is unsure about how much insulin he takes at home. A1c- 7 Plan: -ISS -Blood glucose check AC -Hypoglycemic protocols in place Health maintenance: Dispo: Tele Diet: Renal DVT: SC Heparin PT: Not ordered Code: DNR Case was discussed with Dr Puga PGY-2 and attending physician, Dr Belkys Hernandez MD PGY-1 Disclaimer: This note was dictated by speech recognition. Minor errors in customer contact representative may be present due to voice recognition software. Attending Provider Attestation/Addendum I reviewed labs, imaging, EKG, home medications and prior available records. Face to face evaluation was performed by me. I have personally examined the patient and discussed assessment and plan with the IM team. I reviewed the resident note and agree with the plan with exceptions as below. Acute hypotension Diabetic foot ulcer, bilateral feet Bilateral foot wounds ESRD on hemodialysis Cardiomyopathy/HFrEF EF 10 to 15% High-grade AV block status post pacemaker Goals of care discussion/counseling Patient tolerated his hemodialysis session this time. Discussed with nephrology: Will monitor for 24 hours. Repeat hemodialysis on 11/29 Consulted surgery: Recommended no surgical intervention. Switched antibiotics to doxycycline. Continue wound care Consulted cardiology regarding the reports of severely reduced EF Monitor BMP. Dose medications based on GFR Patient confirmed that he is DNR/DNI
[2024-11-28] MEDS: HEPARIN SOD INJ 5000 UNIT/ML VIAL SC ×2 (12:40→21:50)
[2024-11-28] MEDS: ONDANSETRON INJ 2 MG/ML INJ 2 ML 4 MG IV (17:47)
--- NOTE | 2024-11-28 19:00 | PD.IMPROG ---
Documentation for date of: 11/28/24 Subjective Subjective Interval history: Patient seen and examined at the bedside. No new cardiac complaints at the present point of time still more short of breath or non-ST WA nasal cannula. No major acute events overnight Patient still complains of pain in his foot. Patient able to tolerate dialysis with midodrine as well as some albumin infusions. Recommend to continue midodrine 10 mg 3 times a day for now. Goals of care discussion to be continued by the primary team and patient is DNR at the present point of time. Exam Vital Signs Temp Pulse Resp BP Pulse Ox O2 Del Method O2 Flow Rate 98.3 F 87 16 121/81 96 Nasal Cannula 4 11/28/24 20:00 11/28/24 21:49 11/28/24 20:00 11/28/24 21:49 11/28/24 20:00 11/28/24 20:00 11/28/24 20:00 Narrative Exam General: Alert and oriented x3. In mild acute distress. Eyes: Pupils are equal and reactive to light bilaterally. HEENT: Atraumatic, normocephalic. Cardiovascular: Normal S1 and S2. Normal rate and regular rhythm. 3/6 systolic murmur heard at the apex right sternal border, significant 2+ to 3+ peripheral edema Respiratory: Mild respiratory distress on examination and bilateral air entry present but decreased at the bases and also crackles heard Abdomen: Soft, nontender, nondistended. Skin: Warm to touch. Musculoskeletal: Bilateral leg edema noted along with right foot gangrene and left foot bandaged. Able to move all 4 extremities. Neuro: Alert and oriented x3. No focal neuro deficits. Psych: Cooperative Objective Labs 11/29/24 05:24 11/29/24 05:24 Labs: Laboratory Results - last 24 hr 11/28/24 11/28/24 01:50 05:37 WBC 8.7 RBC 3.56 L Hgb 11.5 L Hct 34.9 L MCV 98 MCH 32.3 MCHC 33.0 RDW Std Deviation 51.9 H Plt Count 137 L Neut % (Auto) 84 H Lymph % (Auto) 6 L [place] % (Auto) 9 Eos % (Auto) 0 Baso % (Auto) 0 Neut # (Auto) 7.3 Lymph # (Auto) 0.5 L [place] # (Auto) 0.8 Eos # (Auto) 0.0 Baso # (Auto) 0.0 Immature Gran # (Auto) 0.04 H Absolute Nucleated RBC 0.00 Immature Gran % 1 H Nucleated RBC % 0 Sodium 134 L Potassium 5.5 H D Chloride 96 L Carbon Dioxide 27.2 Anion Gap 11 BUN 55 H Creatinine 4.6 H* D Estim Creat Clear Calc 0.8 L eGFR 12 L* BUN/Creatinine Ratio 12 Glucose 138 H Calculated Osmolality 285 Calcium 9.3 Ur Collection Type Clean Catch Urine Color Drk-Yellow A Urine Clarity Turbid A Urine pH 5.0 Ur Specific [place] 1.025 Urine Protein 1+ A Urine Glucose (UA) Negative Urine Ketones 1+ A Urine Blood Trace Urine Nitrite Negative Urine Bilirubin Negative Urine Urobilinogen (Auto) 6.0 Ur Leukocyte Esterase Positive Urine RBC 6 H Urine WBC 21 H Ur Squamous Epith Cells 14 H Urine Bacteria 1+ A Ur Culture Indicated? 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 1. Acute hypotension during dialysis. Fluid overload 2. History of severe systolic CHF with any LVEF of 10 to 15% 3. Ischemic cardiomyopathy 4. Severe CAD involving the RCA LCx as well as the moderate disease in the LAD on medical treatment only 5. Dual-chamber pacemaker status post complete heart block and severe symptomatic bradycardia 6. End-stage renal disease on hemodialysis 7. Gangrene of right foot 8. Uncontrolled diabetes mellitus type 2 9. Hyperlipidemia 10. Pulmonary hypertension group 2 secondary to cardiomyopathy and volume overload. Patient presented with hypotension during dialysis and mostly secondary to the active removal of the fluid. Since the patient was in the emergency department patient blood pressure up appears to be soft and has been stable. Recommend to hold all hypertensives for now Add midodrine 10 mg 3 times daily for blood pressure support during the dialysis. Patient has severe CAD and is at very high risk PCI as described by Dr. Styles on his operative report. Continue medical management of the severe RCA, LCx disease along with moderate disease in the LAD and patient has been doing well since the cardiac catheterization. History of severe CHF with an EF of 10 to 15% and and is volume overloaded with she is being managed by nephrology with dialysis with right-sided tunneled dialysis catheter. Patient also has pulmonary hypertension group 2 PAH secondary to the cardiomyopathy as well as a volume overload. Patient recommended to continue on aspirin and statin for now beta-pooja mg of the hypotension. Patient is high risk and probably best to be risk for any cardiac interventions and discussed with the family regarding no further procedures at the present point of time. Given all the overall comorbidities and severe CAD, severe CHF with an EF of 10 to 15%, pulmonary hypertension, end-stage renal disease on hemodialysis as well as the gangrene of both limbs patient has overall very poor prognosis and recommend to continue course of days discussion with the family regarding transition to hospice care. Management of rest of the medical conditions as per primary team and other consultants. Thank you for the consult and allowing me to participate in the care of the patient. Cardiology will continue to follow. Kalin Cardoza M.D. Interventional Cardiology Time Spent With Patient Time: Total time spent is greater than 50% in coordination of care (as documented) at patient's floor/unit and/or counseling patient:
[2024-11-28] MEDS: DOXYCYCLINE 100 MG TABLET PO (21:50)
[2024-11-28] MEDS: INSULIN LISPRO (AdmeLOG) 1 UNIT/0.01 ML UNIT SC (21:58)
[2024-11-29] VITALS (8 sets, daily range): BP systolic 100–136; BP diastolic 60–89; PULSE 79–85; RESP 11–19; TEMP 35.9–37; O2SAT 94–100; BMI 21.1
[2024-11-29 06:00] LABS: Basophils % (Auto) 0 % (0-2.5); Eosinophils % (Auto) 0 % (0-10); Hematocrit 34.5 % (41.0-53.0); Hemoglobin 11.2 g/dL (13.5-16.0); Immature Granulocytes % (Auto) 1 % (0-0); Immature Granulocytes Auto 0.04 Thou/mm3 (0.00-0.00); Lymphocytes # (Auto) 0.6 Thou/mm3 (1.0-4.8); Lymphocytes % (Auto) 8 % (10-50); Mean Corpuscular HGB Conc 32.5 g/dl (31.0-37.0); Mean Corpuscular Volume 99 fL (80-100); Monocytes # (Auto) 0.9 Thou/mm3 (0.0-0.8); Monocytes % (Auto) 12 % (0-12); Neutrophils # (Auto) 6.1 Thou/mm3 (1.8-7.7); Neutrophils % (Auto) 79 % (37-80); Nucleated Red Blood Cell % 0 /100 WBC (0); Platelet Count 149 Thou/mm3 (140-440); RDW Standard Deviation 52.5 fL (35.1-43.9); White Blood Count 7.8 Thou/mm3 (3.8-10.6)
[2024-11-29] MEDS: MIDODRINE 5 MG TABLET 10 MG PO ×2 (06:27→14:32)
[2024-11-29 06:28] LABS: Anion Gap 11 (7-16); BUN/Creatinine Ratio 11 Ratio (12-20); Blood Urea Nitrogen 47 mg/dL (9-23); Calcium 9.4 mg/dL (8.3-10.6); Carbon Dioxide 28.1 mMol/L (20.0-31.0); Chloride 96 mMol/L (98-107); Creatinine (Component) 4.1 mg/dL (0.6-1.3); Estimated Creatinine Clearance 12.3 mL/min (>60); Glucose 108 mg/dL (74-106); Osmolality,Calculated 283 (275-295); Potassium 5.1 mMol/L (3.4-5.1); Sodium 135 mMol/L (136-145); eGFR 14 See Note
--- NOTE | 2024-11-29 08:24 | PD.NEPHPROG ---
Documentation for date of: 11/29/24 Subjective Subjective Interval history: Mr. Bates is a 84-year-old male with significant past medical history significant for diabetes mellitus type 2, left eye blindness, hypertension, BPH and ESRD on hemodialysis following Dr. Waterman, sent from hemodialysis clinic for soft blood pressure, and unable to tolerate hemodialysis. Patient reported that he underwent 2-hour of hemodialysis over there, and when blood pressure was soft, was sent to the ED. Currently, he denied any lightheadedness, chest pain, SOB, abdominal pain, any changes in bowel or bladder habit. He admitted bilateral lower limb edema. During our evaluation, his vitals were stable with blood pressure 115/77, saturating 94% on 4 L NC. CBC fairly stable, CMP revealed sodium 136, potassium 4.9, chloride 97, BUN 45, creatinine 3.7, EGFR 15, A1c 7.0 and magnesium 2.8. Bilateral foot x-ray revealed no fabrizio cortical bone destruction. CXR significant for mild chronic heart failure pattern. PMH: As mentioned above Social history: Denied any smoking, alcohol or illicit drug use Medications: To be reconciled Allergies: No known allergies Nephrology consultation was done for further management of ESRD and hemodialysis. 11/29/2024 patient currently seen in telemetry. Denies any chest pain,. Complaining of swelling in the lower extremities, shortness of breath. Review of Systems Review of Systems Narrative Review of Systems: Complaining of shortness of breath. Denies any chest pain. Does have edema in the lower extremities Exam Vital Signs Temp Pulse Resp BP Pulse Ox O2 Del Method O2 Flow Rate 35.9 C L 79 16 122/89 H 99 Nasal Cannula 2 11/29/24 12:00 11/29/24 14:32 11/29/24 12:23 11/29/24 14:32 11/29/24 12:23 11/29/24 12:23 11/29/24 12:23 Narrative Exam General: No acute distress, Alert and Oriented x 3 HEENT: Left eye haziness/cataract. He is blind in his left eye. He wears sunglasses, Moist mucous membranes, oropharynx clear, Neck: Supple, No masses, No JVD CVS: S1S2 Regular rate and rhythm, No murmurs, rubs or gallops Lungs: Clear to auscultation with no accessory use, no wheeze no rhonchi Abd: Soft, NT/ND, +BS, no organomegaly Ext: 3+ bilateral lower limb edema, Right dialysis line in place appears intact without erythema or evidence of infection. Pacemaker is noted on the left chest. Bilateral lower foot diabetic ulcers with areas of wet gangrene without purulent discharge Skin: No rash Psych: Appropriate mood and affect Objective Labs 11/29/24 05:24 11/29/24 05:24 Labs: Laboratory Results - last 24 hr 11/29/24 05:24 WBC 7.8 RBC 3.50 L Hgb 11.2 L Hct 34.5 L MCV 99 MCH 32.0 MCHC 32.5 RDW Std Deviation 52.5 H Plt Count 149 Neut % (Auto) 79 Lymph % (Auto) 8 L [place] % (Auto) 12 Eos % (Auto) 0 Baso % (Auto) 0 Neut # (Auto) 6.1 Lymph # (Auto) 0.6 L [place] # (Auto) 0.9 H Eos # (Auto) 0.0 Baso # (Auto) 0.0 Immature Gran # (Auto) 0.04 H Absolute Nucleated RBC 0.00 Immature Gran % 1 H Nucleated RBC % 0 Sodium 135 L Potassium 5.1 Chloride 96 L Carbon Dioxide 28.1 Anion Gap 11 BUN 47 H Creatinine 4.1 H* D Estim Creat Clear Calc 12.3 L eGFR 14 L* BUN/Creatinine Ratio 11 L Glucose 108 H Calculated Osmolality 283 Calcium 9.4 Assessment & Plan Additional Assessment & Plan Additional Plan: The patient is a 84-year-old male with significant past medical history significant for diabetes mellitus type 2, left eye blindness, hypertension, BPH and ESRD on hemodialysis following Dr. Waterman, sent from hemodialysis clinic for soft blood pressure, and unable to tolerate hemodialysis. Nephrology consultation was done for further management of ESRD and hemodialysis. #Acute hypotension 2/2 #Cardiogenic shock Patient did receive dialysis in the hospital on midodrine. Will be discharged. #Hyperkalemia Secondary to ESRD -Kayexalate 15 g p.o. x 1 -Monitor potassium level in the a.m. -Hemodialysis if blood pressure is stable and tolerates #Mild hypervolemic hypoosmolar hyponatremia Secondary to volume overload in the setting of ESRD -Hemodialysis if blood pressure stabilizes to remove extra fluid -Continue to monitor daily sodium level #ESRD on hemodialysis TTS Secondary to diabetic and hypertensive nephropathy Patient currently seen on dialysis. Tolerating dialysis without any problems. Hemodialysis for 3 hours, 2K, ultrafiltration 2-3 L, Epogen 6000, no heparin ordered. Plan of care discussed with the dialysis nurse. Please see dialysis flowsheet for further details. 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
[2024-11-29] MEDS: DOXYCYCLINE 100 MG TABLET PO (10:00)
[2024-11-29] MEDS: HEPARIN SOD INJ 5000 UNIT/ML VIAL SC (10:00)
--- NOTE | 2024-11-29 11:00 | PD.IMPROG ---
Documentation for date of: 11/29/24 Subjective Subjective Interval history: Patient seen and examined at the bedside. Primary team did speak to the family and patient is now DNR/DNI and wanted to transition to home with home hospice Plan to discharge today. Cardiology will sign off for now and please call us with any questions or concerns. Exam Vital Signs Temp Pulse Resp BP Pulse Ox O2 Del Method O2 Flow Rate 96.6 F L 79 16 122/89 H 99 Nasal Cannula 2 11/29/24 12:00 11/29/24 14:32 11/29/24 12:23 11/29/24 14:32 11/29/24 12:23 11/29/24 12:23 11/29/24 12:23 Narrative Exam General: Alert and oriented x3. In mild acute distress. Eyes: Pupils are equal and reactive to light bilaterally. HEENT: Atraumatic, normocephalic. Cardiovascular: Normal S1 and S2. Normal rate and regular rhythm. 3/6 systolic murmur heard at the apex right sternal border, significant 2+ to 3+ peripheral edema Respiratory: Mild respiratory distress on examination and bilateral air entry present but decreased at the bases and also crackles heard Abdomen: Soft, nontender, nondistended. Skin: Warm to touch. Musculoskeletal: Bilateral leg edema noted along with right foot gangrene and left foot bandaged. Able to move all 4 extremities. Neuro: Alert and oriented x3. No focal neuro deficits. Psych: Cooperative Objective Labs 11/29/24 05:24 11/29/24 05:24 Labs: Laboratory Results - last 24 hr 11/29/24 05:24 WBC 7.8 RBC 3.50 L Hgb 11.2 L Hct 34.5 L MCV 99 MCH 32.0 MCHC 32.5 RDW Std Deviation 52.5 H Plt Count 149 Neut % (Auto) 79 Lymph % (Auto) 8 L [place] % (Auto) 12 Eos % (Auto) 0 Baso % (Auto) 0 Neut # (Auto) 6.1 Lymph # (Auto) 0.6 L [place] # (Auto) 0.9 H Eos # (Auto) 0.0 Baso # (Auto) 0.0 Immature Gran # (Auto) 0.04 H Absolute Nucleated RBC 0.00 Immature Gran % 1 H Nucleated RBC % 0 Sodium 135 L Potassium 5.1 Chloride 96 L Carbon Dioxide 28.1 Anion Gap 11 BUN 47 H Creatinine 4.1 H* D Estim Creat Clear Calc 12.3 L eGFR 14 L* BUN/Creatinine Ratio 11 L Glucose 108 H Calculated Osmolality 283 Calcium 9.4 Assessment & Plan A&P Narrative 84-year-old male with a history of severe CAD of the RCA, LCx and moderate disease in the LAD, medically managed, ischemic cardiomyopathy with severe triple-vessel CAD with an EF of 10-15%, group 2 pulmonary hypertension secondary to cardiomyopathy and volume overload, [employer] dual-chamber pacemaker for complete heart block and symptomatic bradycardia, end-stage renal disease on hemodialysis via dialysis catheter, essential hypertension, BPH, type 2 diabetes mellitus uncontrolled, left eye blindness presented to the emergency department from the dialysis center for further evaluation of hypotension. 1. Acute hypotension during dialysis. Fluid overload 2. History of severe systolic CHF with any LVEF of 10 to 15% 3. Ischemic cardiomyopathy 4. Severe CAD involving the RCA LCx as well as the moderate disease in the LAD on medical treatment only 5. Dual-chamber pacemaker status post complete heart block and severe symptomatic bradycardia 6. End-stage renal disease on hemodialysis 7. Gangrene of right foot 8. Uncontrolled diabetes mellitus type 2 9. Hyperlipidemia 10. Pulmonary hypertension group 2 secondary to cardiomyopathy and volume overload. Patient presented with hypotension during dialysis and mostly secondary to the active removal of the fluid. Since the patient was in the emergency department patient blood pressure up appears to be soft and has been stable. Recommend to hold all hypertensives for now Add midodrine 10 mg 3 times daily for blood pressure support during the dialysis. Patient has severe CAD and is at very high risk PCI as described by Dr. Styles on his operative report. Continue medical management of the severe RCA, LCx disease along with moderate disease in the LAD and patient has been doing well since the cardiac catheterization. History of severe CHF with an EF of 10 to 15% and and is volume overloaded with she is being managed by nephrology with dialysis with right-sided tunneled dialysis catheter. Patient also has pulmonary hypertension group 2 PAH secondary to the cardiomyopathy as well as a volume overload. Patient recommended to continue on aspirin and statin for now beta-pooja mg of the hypotension. Patient is high risk and probably best to be risk for any cardiac interventions and discussed with the family regarding no further procedures at the present point of time. Given all the overall comorbidities and severe CAD, severe CHF with an EF of 10 to 15%, pulmonary hypertension, end-stage renal disease on hemodialysis as well as the gangrene of both limbs patient has overall very poor prognosis and recommend to continue course of days discussion with the family regarding transition to hospice care. Primary team did speak to the family and patient is now DNR/DNI and wanted transition to home with home hospice Plan to discharge today. Cardiology will sign off for now and please call us with any questions or concerns. Management of rest of the medical conditions as per primary team and other consultants. Thank you for the consult and allowing me to participate in the care of the patient. Cardiology will continue to follow. Kalin Cardoza M.D. Interventional Cardiology Time Spent With Patient Time: Total time spent is greater than 50% in coordination of care (as documented) at patient's floor/unit and/or counseling patient:
--- NOTE | 2024-11-29 12:48 | ESDS_ITS ---
<Statement entered by Francisco Bryant MD - 11/29/24 14:20> Patient was examined with the team including attending physician. Note reviewed, I agree with the discharge plan as documented. - Francisco Bryant M.D. PGY2 Planned Discharge Date 11/29/24 DS: Providers Provider Date of admission: 11/26/24 18:42 Primary care physician: Francisco Wilson MD Admitting Provider: Pawan Rizvi MD Attending Provider on Admission: Yojana Styles MD Consults: 11/26/24 17:12 Consult to Nephrology Stat Comment: ESRd Consulting Provider: Courtney Waterman 11/26/24 18:12 Consult to General Surgery Stat Comment: Bilateral foot diabetic infection Consulting Provider: Odette Cortez 11/26/24 18:46 Consult to General Surgery Routine Comment: Diabetic foot ulcers/gangrene. Debridement? Consulting Provider: Odette Cortez Consult to Nephrology Routine Comment: ESRD on hemodialysis Consulting Provider: Courtney Waterman 11/27/24 13:48 Consult to Cardiology Routine Comment: Consulting Provider: Yojana Styles 11/29/24 12:34 Referral Hospice Routine Comment: Attending Provider on DC: Jeremiah Hernandez MD Discharging Provider: Jeremiah Hernandez MD DS: Diagnosis Problem List Completed Was Problem List Reviewed/Reconciled?: Yes Hospital Course Hospital Course Hospital course: The patient is an 84-year-old male with a past medical history of hypertension, BPH, type II DM, HFrEF 10 to 15% ESRD on dialysis Saturday and Saturday, followed by Dr. Rosa who presented to the ED on 11/26/2024 from dialysis center with complaints of hypertension. Apparently, the patient was in the middle of dialysis when his blood pressure was said to have been severely low after which she was sent to the ED from the dialysis center. The ED, the patient was hypotensive with labs reflecting a picture of ESRD. He also had gangrene of the right second and third and fourth toes, x-ray of the foot showed no bony destruction. He received IV Zosyn in the ED and was admitted for further evaluation of hypotension. Patient was scheduled for inpatient dialysis and had a session just after admission which she tolerated. Surgery was consulted for the gangrene but recommended no surgical intervention for now and to continue with medical management. On 11/28/2024, he had another session of dialysis which he tolerated with albumin infusion and midodrine. Today, the patient is clinically and hemodynamically stable. After extensive conversation with the patient and family, he has agreed to go home with hospice. He is medically cleared for discharge. 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 He will continue outpatient dialysis as scheduled and continue doxycycline for 11 more days and continue wound care. He will also continue using midodrine if SBP<90. #Acute hypotension in the setting of dialysis #History of HFrEF 10 to 15% #Status post pacemaker #ESRD on dialysis #Diabetic foot ulcer Discharge instructions: Follow up with your PCP within one week of discharge Follow up with nephrology within two weeks of discharge Follow up with cardiology within two weeks of discharge Continue outpatient dialysis as scheduled Continue doxycycline for 11 more days Use midodrine only if SBP<90 Continue wound care Return to the ED if your symptoms worsen Case was discussed with Dr Bryant PGY-2 and attending physician, Dr Belkys Hernandez MD PGY-1 Disclaimer: This note was dictated by speech recognition. Minor errors in rigger up may be present due to voice recognition software. Status at Discharge Overall status at discharge: patient is progressing back to baseline Time Spent with Patient Time attestation: Total time spent providing and/or coordinating discharge services: Time spent: Greater than 30 minutes Exam Vital Signs Temp Pulse Resp BP Pulse Ox O2 Del Method O2 Flow Rate 96.6 F L 79 16 122/89 H 99 Nasal Cannula 2 11/29/24 12:11/29/24 12:00 11/29/24 12:23 11/29/24 12:11/29/24 12:23 11/29/24 12:23 11/29/24 12:23 Narrative Exam GENERAL: AAOX3 NEURO: MILK SAMPLER grossly intact, moves extremities x4 HEENT: Moist mucosa. Left eye blindness CARDIO: No chest pain on palpation. Heart RRR, no obvious murmurs PULM: No noted coughing/dyspnea. Crackles heard bilaterally on auscultation GI: Abdomen soft, nondistended, no pain on palpation. BSx4 URO/GROUNDS/MAINTENANCE SPECIALIST:: No further abnormalities noted. SKIN/MSK/EXT: Bilateral pitting edema. Pedal pulses present. Gangrene of 2nd,3rd and 4th toes. Clean and dry dressing on the left foot. Discharge Plan Plan Patient Disposition: Home w/HOSPICE Patient condition on transfer: Stable Prescriptions/Referrals Prescriptions/Med Rec: New doxycycline hyclate 100 mg Tablet 100 mg PO BID 11 Days Qty: 22 0RF midodrine 5 mg Tablet 10 mg PO TID PRN (Reason: SBP<90) 30 Days Qty: 180 0RF Continued doxycycline hyclate 100 mg tablet 100 mg PO BID megestrol 400 mg/10 mL (40 mg/mL) suspension 10 mg PO QDAY Patient Comments: TAKE 10 ML BY MOUTH DAILY alprazolam 0.25 mg tablet 0.25 mg PO HS PRN (Reason: Anxiety) Patient Comments: 1 TABLET BY MOUTH AT BEDTIME NEEDED NEEDED Marlen-Courtney 0.8 mg tablet 1 tab PO QDAY Patient Comments: TAKE 1 TABLET BY MOUTH EVERY DAY ergocalciferol (vitamin D2) 1,250 mcg (50,000 unit) capsule 50,000 unit PO QWEEK Patient Comments: TAKE 1 CAPSULE BY MOUTH WEEKLY Rx Instructions: ON FRIDAYS Novolin N NPH U-100 Insulin 100 unit/mL Suspension 20 unit SUBCUT BID Rx Instructions: ADJUSTS DEPENDING BG tamsulosin 0.4 mg Capsule 0.4 mg PO DAILY Discontinued midodrine 10 mg tablet 10 mg PO TID Rx Instructions: do not give last dose of day after 6PM or within 4 hrs of bedtime sacubitril-valsartan [Entresto] 24-26 mg tablet See Rx Instructions PO BID Rx Instructions: 1/2 TAB BID amoxicillin-pot clavulanate 875-125 mg tablet 1 tab PO Q12H Qty: 10 0RF doxycycline monohydrate 100 mg capsule 100 mg PO BID Qty: 10 0RF Referrals: Francisco Wilson MD [Primary Care Provider] - Patient/Caregiver Discharge Instructions Other Discharge Activity Instructions:: Follow up with your PCP within one week of discharge Follow up with nephrology within two weeks of discharge Follow up with cardiology within two weeks of discharge Continue outpatient dialysis as scheduled Continue doxycycline for 11 more days Use midodrine only if SBP<90 Continue wound care Return to the ED if your symptoms worsen Education Materials: ED Low Blood Pressure, All Causes Print Language: Greek Stand Alone Forms: Anne Award Info., Patient Portal Info Letter Discharge Order Discharge Orders: Discharge (Routine); Ordered 11/29/24 Ordered By: Jeremiah Hernandez Quality Discharge Quality Measures VTE prophylaxis Attestestation Attestation I reviewed labs, imaging, EKG, home medications and prior available records. Face to face evaluation was performed by me. I have personally examined the patient and discussed assessment and plan with the IM team. I reviewed the resident note and agree with the plan with exceptions as below. Acute hypotension Diabetic foot ulcer, bilateral feet Bilateral foot wounds ESRD on hemodialysis Cardiomyopathy/HFrEF EF 10 to 15% High-grade AV block status post pacemaker Goals of care discussion/counseling Patient tolerated his hemodialysis. Continue midodrine as needed with dialysis sessions. Hold home Entresto Consulted surgery: Recommended no surgical intervention. Switched antibiotics to doxycycline. Continue wound care Consulted cardiology regarding the reports of severely reduced EF. Patient is high risk for any surgical intervention. Recommended hospice discussions Monitor BMP. Dose medications based on GFR Patient confirmed that he is DNR/DNI. Initially patient and family agreed on home with hospice however upon further discussions, they declined and wanted to go home without hospice Time spent is 45 minutes. More than 50% of the time was spent on patient education and coordination of care.
--- NOTE | 2024-11-29 13:54 | PC.SS ---
Healthcare Administrator was informed by [facility] resident patient's family interested in hospice services. Healthcare Administrator met with patient and daughter Cat at bedside. Hospice brochures provided to patient's daughter and information presented. Patient declined hospice at this time and accepted brochures for future use. Healthcare Administrator informed Dr. Rizvi.
[2024-11-29] MEDS: INSULIN LISPRO (AdmeLOG) 1 UNIT/0.01 ML UNIT SC (14:32)
--- NOTE | 2024-11-30 17:39 | PC.SS ---
SOUND CONTROLLER received phone call from patient's son, Miguel ; requesting information on how to obtain hospice services for the patient. SOUND CONTROLLER conducted chart review which indicated patient declined hospices services on 11-29-24. SOUND CONTROLLER informed patient's son that due to patient declining no hospice referral was submitted. SOUND CONTROLLER informed patient's son that hospice referral can be generated with patient's PCP. Chart review indicated that patient has been aligned with [facility] home health in the past. Son prefers to transition patient to [facility] hospice. SOUND CONTROLLER provided patient's son contact number to [facility] hospice staff, Arabella Copeland; for guidance on process now that patient has been discharged. In addition, SOUND CONTROLLER spoke to [facility] hospice staff to provide update. Chart review indicates that absence of home health referral at time of discharge on 11-29-24.
== END 2024-11-29 15:16 | disposition home or self-care (01) | DRG 291 ==
LOC: SERX 13:59 → SERHOLD 19:12 → S2NX 11-27 01:06
PROVIDERS: Internal Medicine; Nurse Practitioner Family; Admitting Provider Student in an Organized Health Care Education/Training Program; Emergency Provider Emergency Medicine; PCP Family Medicine; Visit Provider Internal Medicine Cardiovascular Disease
DX: I13.2 Hypertensive heart and chronic kidney disease with heart failure and with stage 5 chronic kidney disease, or end stage renal disease (principal); I50.23 Acute on chronic systolic (congestive) heart failure; N18.6 End stage renal disease; E87.1 Hypo-osmolality and hyponatremia; E11.52 Type 2 diabetes mellitus with diabetic peripheral angiopathy with gangrene; I44.2 Atrioventricular block, complete; I95.3 Hypotension of hemodialysis; E11.22 Type 2 diabetes mellitus with diabetic chronic kidney disease; N40.0 Benign prostatic hyperplasia without lower urinary tract symptoms; H54.62 Unqualified visual loss, left eye, normal vision right eye; E87.5 Hyperkalemia; E11.621 Type 2 diabetes mellitus with foot ulcer; D63.1 Anemia in chronic kidney disease; E78.5 Hyperlipidemia, unspecified; I25.5 Ischemic cardiomyopathy; I27.22 Pulmonary hypertension due to left heart disease; I25.10 Atherosclerotic heart disease of native coronary artery without angina pectoris; L97.529 Non-pressure chronic ulcer of other part of left foot with unspecified severity; L97.519 Non-pressure chronic ulcer of other part of right foot with unspecified severity; Z66 Do not resuscitate; Z99.2 Dependence on renal dialysis; Z95.0 Presence of cardiac pacemaker; Z87.01 Personal history of pneumonia (recurrent); Z79.4 Long term (current) use of insulin; Z79.899 Other long term (current) drug therapy
CPT/HCPCS: 36415; 71045; 73630; 80048; 80053; 80074; 80202; 81001; 83036; 83605; 83735; 83880; 84100; 84145; 84484; 85025; 85610; 85730; 86706; 87040; 87081; 87400; 87634; 87811; 99285; J1643; J1815; J2405; J2543; J3370; P9047; A9270

== ENCOUNTER → 2024-11-26 | Outpatient (CLI) | payer MEDICARE, BC, SELFPAY | END | disposition home or self-care (01) | PROVIDERS: Referring Provider Surgery; Visit Provider Surgery | DX: E11.621 Type 2 diabetes mellitus with foot ulcer (principal); L97.519 Non-pressure chronic ulcer of other part of right foot with unspecified severity | CPT/HCPCS: 87070; 87075; 87205 ==